=== PATIENT | male | born 1965 | race Caucasian/White ===

== ENCOUNTER 2019-05-10 14:00 | Outpatient (RCR) | payer MEDICAID, SELFPAY ==
--- NOTE | 2019-01-15 12:18 | HP.PTEVAL_ITS ---
Patient's Visit Information HIRAL JOSE is a 53 year old M referred to Physical Therapy by EDILIA REDMOND with a diagnosis of Right knee/hip/back pain. Date of Evaluation: 01/15/19 Physical Therapist: Mary Ann Kirk DPT - Visit Plan Frequency: 2x /Week Duration: 4 Weeks Plan: Focus on LE and core s/s- functional mobility and balance- Ultrasound for pain - Subjective Findings: Patient reports that his hip, knee and back on the right side have been bothering him for months. Just got a new brave AFO on the right to help with the toe out gait pattern. The pain is constant. More pain when he is up walking and when he is mobile. Does do stairs which bother him. He is mostly sedentary. No pain when sitting. Worst: 8/10. they all hurt equally. Dull and achy as well as sharp and shooting. Does not use a cane or walker. Lives with his mother- has stairs at home- has 2 handrails on them. Pain radiates to the ankle. Eases: aspercream, sitting down in reclyner (3 hours), Ibuprofen/Tylenol. Sleep: disturbed- back and side sleeper. PMHx/Meds: in chart. - Objective Posture: FH, RS- can correct with VC's but does not maintain- flaccid right UE. Gait: severe deviations on the right- extreme hyperextension of the right knee with stance phase, ER of the hip increasing last turner of the right LE- no AD. SLS: 3 sec then LOB on right Left: 10 seconds. HR/TR: unable due to fixed AFO on the right. ROM: WFL in all planes with passive ROM. Palpation: tender along medial and lateral joint line of the knee, greater troch of the hip and along paraspinals of supine bilaterally from sacrum to Ct junction. Strength: Left: 5/5 throughout Core: poor, Hip: 2+/5, Knee: 3/5 Ankle: not tested secondary to non hinged AFO - Goals Goal 1:: Patient will be I with HEP and progression Goal Time Frame: 4-6 Weeks Goal 2:: Patient will maintain proper posture to demo increased core s/s Goal Time Frame: 4-6 Weeks Goal 3:: Patient will report decreased pain in knee/hip and lumbar Goal Time Frame: 4-6 Weeks Goal 4:: Patient will report sleeping through the night with no pain Goal Time Frame: 4-6 Weeks - Rehabilitation Potential Physical Therapy Diagnosis: Patient presents with hypomobility- he has decreased strength and muscular enduranc leading to poor gait pattern and increased pain with ADL's. Rehabilitation Potential: Fair - Anticipated Interventions Patient/Client Instruction: Educate patient on: Benefits of Fitness Program Therapeutic Exercise to Include: Strength training, Endurance training, Balance training, Agility training, Body mechanics, Postural training, Flexibilty training, Gait and locomotor training, Passive ROM, Active ROM, Dynamic Lumbar Stabilization For the Purpose of:: To improve muscle performance and motor function Cryotherapy (ice pack, ice massage): Yes Thermo therapy (hot pack): Yes Ultrasound (thermal/non thermal): Yes Thank you for the opportunity to evaluate your patient. For Medicare and Medicare HMO plans, please review the plan of care and approve it. It will need to be FAXED BACK to us at [phone] for Medicare purposes. For Medicare only, by signing this I certify the plan of care. Please let me know if there are questions or concerns regarding this plan of care. Physician Signature: Dat e:
--- NOTE | 2019-02-15 13:34 | HP.PTREVAL ---
EDILIA REDMOND, It has been my pleasure to treat HIRAL JOSE over the last 9 visits for Right knee/hip/back pain. Please see the progress note below for an update on the physical therapy plan of care! Subjective: Patient reports that he is wearing the new brace. Still has a lot of pain in his knee/hip and back- the strength is better but the pain is still the same. Objective/Function: Posture: FH, RS- can correct with VC's but does not maintain- flaccid right UE was wearing Bioness brace. Gait: severe deviations on the right- extreme hyperextension of the right knee with stance phase, ER of the hip increasing turn down worker of the right LE- no AD. SLS: 5 sec then LOB on right Left: 10 seconds. HR/TR: unable due to fixed AFO on the right. ROM: WFL in all planes with passive ROM. Palpation: tender along medial and lateral joint line of the knee, greater troch of the hip and along paraspinals of supine bilaterally from sacrum to Ct junction. Strength: Left: 5/5 throughout Core: poor, Hip: 2+/5, Knee: 3/5 Ankle: not tested secondary to non hinged AFO Plan Plan: Aquatic therapy to promote decreased weight bearing through LE joints Goals Goal 1:: Patient will be I with HEP and progression Goal Time Frame: 4-6 Weeks Goal Progress: Progressing Goal 2:: Patient will maintain proper posture to demo increased core s/s Goal Time Frame: 4-6 Weeks Goal Progress: Progressing Goal 3:: Patient will report decreased pain in knee/hip and lumbar Goal Time Frame: 4-6 Weeks Goal Progress: Not Progressing Goal 4:: Patient will report sleeping through the night with no pain Goal Time Frame: 4-6 Weeks Goal Progress: Not Progressing Anticipated Interventions Patient/Client Instruction: Educate patient on: Benefits of Fitness Program Therapeutic Exercise to Include: Strength training, Endurance training, Balance training, Agility training, Body mechanics, Postural training, Flexibilty training, Gait and locomotor training, Passive ROM, Active ROM, Dynamic Lumbar Stabilization For the Purpose of:: To improve muscle performance and motor function Cryotherapy (ice pack, ice massage): Yes Thermo therapy (hot pack): Yes Ultrasound (thermal/non thermal): Yes Please do not hesitate to contact me at [phone] by phone or if you have questions or concerns regarding this new plan of care! Sincerely, MARIE MendozaT
--- NOTE | 2019-03-18 15:34 | HP.PTREVAL ---
EDILIA REDMOND, It has been my pleasure to treat HIRAL JOSE over the last 15 visits for Right knee/hip/back pain. Please see the progress note below for an update on the physical therapy plan of care! Subjective: Patient reports that things are getting easier- no less pain just functionally easier. Has pain all the time. Objective/Function: Posture: FH, RS- can correct with VC's but does not maintain- flaccid right UE was wearing Bioness brace. Gait: severe deviations on the right- extreme hyperextension of the right knee with stance phase, ER of the hip increasing shank turner of the right LE- no AD. SLS: 5 sec then LOB on right Left: 15 seconds. HR/TR: unable due to fixed AFO on the right. ROM: WFL in all planes with passive ROM. Palpation: tender along medial and lateral joint line of the knee, greater troch of the hip and along paraspinals of supine bilaterally from sacrum to Ct junction. Strength: Left: 5/5 throughout Core: fair, Hip: 3-/5, Knee: 3/5 Ankle: not tested secondary to non hinged AFO Plan Plan: Continue in aquatic setting 2x a week for 4 weeks- progress to HEP Goals Goal 1:: Patient will be I with HEP and progression Goal Time Frame: 4-6 Weeks Goal Progress: Progressing Goal 2:: Patient will maintain proper posture to demo increased core s/s Goal Time Frame: 4-6 Weeks Goal Progress: Progressing Goal 3:: Patient will report decreased pain in knee/hip and lumbar Goal Time Frame: 4-6 Weeks Goal Progress: Progressing Goal 4:: Patient will report sleeping through the night with no pain Goal Time Frame: 4-6 Weeks Goal Progress: Progressing Anticipated Interventions Patient/Client Instruction: Educate patient on: Benefits of Fitness Program Therapeutic Exercise to Include: Strength training, Endurance training, Balance training, Agility training, Body mechanics, Postural training, Flexibilty training, Gait and locomotor training, Passive ROM, Active ROM, Dynamic Lumbar Stabilization For the Purpose of:: To improve muscle performance and motor function Cryotherapy (ice pack, ice massage): Yes Thermo therapy (hot pack): Yes Ultrasound (thermal/non thermal): Yes Please do not hesitate to contact me at [phone] by phone or if you have questions or concerns regarding this new plan of care! Sincerely, MARIE MendozaT
--- NOTE | 2019-05-12 13:00 | HP.PT.NRP ---
HP - Discharge Summary (1) - Patient Information HIRAL JOSE was seen in my office for initial evaluation on 01/15/19. The following Plan of Care was established for this patient: Initial Frequency: 2x /Week Initial Duration: 4 Weeks - Anticipated Interventions Patient/Client Instruction: Educate patient on: Benefits of Fitness Program Therapeutic Exercise to Include: Strength training, Endurance training, Balance training, Agility training, Body mechanics, Postural training, Flexibilty training, Gait and locomotor training, Passive ROM, Active ROM, Dynamic Lumbar Stabilization For the Purpose of:: To improve muscle performance and motor function Cryotherapy (ice pack, ice massage): Yes Thermo therapy (hot pack): Yes Ultrasound (thermal/non thermal): Yes This patient was last seen in our office . Pertinent comments regarding their Physical therapy will appear below: Patient called and cancelled apts- fell and broke his collar bone and seperated his shoulder- appropriate to be d/c at this time. At this point I will be discontinuing this patient from physical therapy. I would be happy to see this patient again in the future if found appropriate by the physician. Thank you! Mary Ann Kirk DPT
== END 2019-05-10 19:00 | disposition home or self-care (01) ==
LOC: PT 14:00
PROVIDERS: Family Provider Family Medicine; PCP Family Medicine
DX: G81.10 Spastic hemiplegia affecting unspecified side (principal)
CPT/HCPCS: 97035; 97110; 97113; 97116; 97162; 97164

== ENCOUNTER 2021-12-16 07:14 | Emergency (ER) | payer MEDICAID, SELFPAY ==
[2021-12-16] VITALS (8 sets, daily range): BP systolic 108–170; BP diastolic 73–116; PULSE 60–86; RESP 12–18; TEMP 35.4–36.4; O2SAT 94–100; BMI 28.8
--- NOTE | 2021-12-16 07:38 | CT_ITS ---
EXAM: CT CHEST, ABDOMEN AND PELVIS WITHOUT INTRAVENOUS CONTRAST : 1965 CLINICAL INDICATION: altered mental TECHNIQUE: Helically acquired images were obtained of the chest, abdomen and pelvis without intravenous contrast. This CT exam was performed using one or more of the following dose reduction techniques: automated exposure control, adjustment of the mA and/or kV according to patient size, and/or use of iterative reconstruction technique. This report was created using [employer] report generation technology. COMPARISON: CT the abdomen and pelvis dated 06/26/2017 FINDINGS: CHEST: LUNGS AND PLEURAL SPACES: Unremarkable. No mass. No consolidation or edema. No pleural effusion or thickening. No pneumothorax. HEART: Unremarkable. Heart size is normal. No pericardial effusion. No significant coronary artery calcifications. MEDIASTINUM: Unremarkable. No mediastinal or hilar adenopathy. Esophagus is unremarkable. No hiatal hernia. THYROID: Unremarkable. No thyroid lesions. ABDOMEN: LIVER: Unremarkable. Homogeneous. GALLBLADDER AND BILE DUCTS: Unremarkable. No calcified gallstones. No gallbladder distention or wall edema. No intra- or extrahepatic biliary ductal dilation. PANCREAS: Unremarkable. No focal cystic mass. SPLEEN: Unremarkable. Normal size without focal cystic or solid mass. ADRENALS: Unremarkable. No nodules. KIDNEYS AND URETERS: Patient status post right nephrectomy. STOMACH AND BOWEL: Unremarkable. No stomach or bowel distention. No focal inflammatory change. PELVIS: APPENDIX: No evidence of acute appendicitis. BLADDER: Unremarkable. REPRODUCTIVE: Unremarkable as visualized. No mass. CHEST, ABDOMEN and PELVIS: INTRAPERITONEAL SPACE: Unremarkable. No ascites or other fluid collection. No free air. BONES/JOINTS: Unremarkable. No suspicious lytic or blastic abnormality. SOFT TISSUES: Unremarkable. No discrete abdominal or pelvic wall hernia. VASCULATURE: Unremarkable. Aorta is non-dilated. LYMPH NODES: Unremarkable. No enlarged lymph nodes. CT/CT Chest, Abd, Pelvis WO Cont IMPRESSION: No acute abnormalities in the chest, abdomen or pelvis. Patient is status post right nephrectomy. Individualized dose optimization techniques were used for this CT. at 0842 Reported and signed by: Alvino Tyson MD Electronically Signed: Alvino Tyson MD at 8:41 EST ,
--- NOTE | 2021-12-16 07:39 | EKG12_ITS ---
Test Reason : FALL Blood Pressure : / mmHG Vent. Rate : 066 BPM Atrial Rate : 066 BPM P-R Int : 178 ms QRS Dur : 100 ms QT Int : 430 ms P-R-T Axes : 070 061 053 degrees QTc Int : 450 ms Normal sinus rhythm Normal ECG Confirmed by ROMERO QUILES, SILKE ([id number]), online content editor SOWMYA DAVIS ([id number]) on 12/19/2021 12:55:21 PM Referred By: BUBBA Confirmed By:SILKE JASSO MD
--- NOTE | 2021-12-16 07:39 | CT_ITS ---
EXAM: CT HEAD WITHOUT INTRAVENOUS CONTRAST : 1965 CLINICAL INDICATION: Trauma TECHNIQUE: Multiple axial images were obtained of the head without intravenous contrast. This CT exam was performed using one or more of the following dose reduction techniques: automated exposure control, adjustment of the mA and/or kV according to patient size, and/or use of iterative reconstruction technique. This report was created using [employer] report generation technology. COMPARISON: 03/07/2016 FINDINGS: BRAIN AND EXTRA-AXIAL SPACES: There is stable hypoattenuation in the left frontal and parietal lobes compatible with remote ischemia. There is mild enlargement of the left lateral ventricle and frontal horns due to an ex vacuo effect which is also stable. No intra- or extra-axial hemorrhage. No intracranial mass or mass effect. Posterior fossa structures are unremarkable. Basal cisterns are patent. BONES/JOINTS: There is beam hardening artifact from metallic structure in the posterior left temporal bone which is stable. No discrete lytic or blastic abnormalities. SINUSES: Unremarkable as visualized. Clear. MASTOID AIR CELLS: Unremarkable. Clear. ORBITS: Visualized globes, extraocular muscles, optic nerves and retrobulbar fat appear unremarkable. CT/Brain/Head without Contrast IMPRESSION: 1. No acute intracranial abnormality. There has been no change from the reference examination. 2. Stable left-sided hypoattenuation from remote ischemia. Individualized dose optimization techniques were used for this CT. at 0814 Reported and signed by: Alvnio Tyson MD Electronically Signed: Alvino Tyson MD at 8:13 EST ,
--- NOTE | 2021-12-16 07:39 | RAD_ITS ---
STUDY: X-RAY CHEST REASON FOR EXAM: Male, 56 years old. Trauma TECHNIQUE: Single AP portable view of the chest. COMPARISON: 04/23/2014 FINDINGS: Interval placement of endotracheal tube with the tip approximately 5 cm above the chau. Interval placement of nasogastric tube with the tip below the diaphragm. The lungs are clear and expanded. There is no demonstrated pleural abnormality. Normal size heart. Normal mediastinum and abraham. Normal visualized pulmonary arteries. Normal visualized aortic arch and descending thoracic aorta. Normal visualized thoracic spine. Normal visualized ribs, clavicles, and shoulders. There is no demonstrated abnormality of the visualized soft tissue structures of the upper abdomen. RAD/Chest 1 View (Portable) IMPRESSION: 1. Interval placement of endotracheal tube with the tip above the cahu. 2. Interval placement of nasogastric tube with the tip below the diaphragm. 3. No active pulmonary disease. Electronically Signed: Brain Castillo MD at 9:51 EST ,
--- NOTE | 2021-12-16 07:40 | CT_ITS ---
EXAM: CT CERVICAL SPINE WITHOUT INTRAVENOUS CONTRAST : 1965 CLINICAL INDICATION: Trauma TECHNIQUE: Helically acquired images were obtained of the cervical spine without intravenous contrast. 2D reformatted images were reviewed. This CT exam was performed using one or more of the following dose reduction techniques: automated exposure control, adjustment of the mA and/or kV according to patient size, and/or use of iterative reconstruction technique. This report was created using [employer] report generation technology. COMPARISON: None. FINDINGS: VERTEBRAE: Unremarkable. No fracture. No traumatic subluxation. No discrete lytic or blastic abnormality. Normal alignment. Normal craniocervical junction and cervicothoracic junction. DISCS/SPINAL CANAL/NEURAL FORAMINA: There is disc space narrowing at C4-5. SOFT TISSUES: Unremarkable. No prevertebral soft tissue swelling. LYMPH NODES: Unremarkable. No cervical adenopathy. LUNG APICES: Unremarkable as visualized. Clear. CT/Spine Cervical without Contras IMPRESSION: 1. No acute osseous abnormalities. 2. Mild degenerative changes with disc space narrowing. Individualized dose optimization techniques were used for this CT. at 0816 Reported and signed by: Alvino Tyson MD Electronically Signed: Alvino Tyson MD at 8:15 EST ,
--- NOTE | 2021-12-16 07:50 | ED.RN ---
THIS RN SPOKE WITH MOM ON PHONE. MOM REPORTS THAT PT HAD A SEIZURE THIS AM ON THE TOILET AND HAD FALLEN AND HIT HIS HEAD. SHE REPORTS THRASHING SEIZURE ACTIVITY THAT LASTED A MINUTE OR TWO. REPORTS WHEN SHE CALLED 911, HE HAD ANOTHER SEIZURE FOR A COUPLE MINUTES PRIOR TO SQUAD ARRIVAL. SHE REPORTS PT HAS RESIDUAL APHASIA AND SPEECH DIFFICULTIES AND RIGHT SIDED WEAKNESS FROM A PREVIOUS STROKE.
--- NOTE | 2021-12-16 07:52 | EDS_ITS ---
HPI History of Present Illness Chief Complaint: Confusion Narrative Narrative: 56-year-old male presenting from home. It is reported that he had a seizure this morning. He also suffered a fall. His mother reports that he had another seizure afterwards. She told the nursing staff that she has not seen and have a seizure in a long time. [facility] Medical History Back problem Bone fracture Head trauma High blood pressure Kidney disease Kidney failure Kidney stones Stroke UTI (urinary tract infection) Home Medications gabapentin 300 mg PO TID 09/08/14 [History Last Taken Unknown] baclofen 10 mg PO 4X/DAY 04/11/16 [History Last Taken 09/16/17 05:00 10 MG] Botox 0 mg IM QMONTH 06/06/17 [History Last Taken Unknown] aspirin 325 mg PO BID 06/06/17 [History Last Taken 07/09/17] lisinopril 10 mg PO DAILY 06/06/17 [History Last Taken 09/16/17 05:00 10 MG] trazodone 25 - 50 mg PO QHS 06/06/17 [History Last Taken Unknown] hydrocodone-acetaminophen 1 - 2 tab PO Q4H PRN PRN #20 tab 09/17/17 [Rx Last Taken Unknown] Allergy/AdvReac Type Severity Reaction Status Date / Time tramadol Allergy SEIZURE Verified 12/16/21 07:15 Family History Father CVA (cerebral vascular accident) Hypertension Melanoma Mother Osteoporosis Surgical History History of kidney removal S/P appendectomy S/P colectomy S/P foot surgery, left S/P hernia repair Status post ear surgery Social History (Updated 09/29/17 @ 15:06 by Maribell SHAFFER PA-C) Smoking Status: Current every day smoker tobacco type: e-cigarettes second hand exposure: No alcohol intake: former substance use type: does not use caffeine: Yes what type of physical activity do you participate in: none seatbelt use: always ROS ROS ED Review of Systems ROS Unobtainable: due to mental status EXAM Physical Exam Const Vital Signs: 12/16/21 07:15 12/16/21 08:14 12/16/21 08:35 Temperature 97.5 F L 95.7 F L Temperature Source Temporal Core Pulse Rate 70 60 62 Respiratory Rate 16 16 12 Respiratory Depth Respiratory Pattern Blood Pressure 144/89 H 112/73 108/80 Blood Pressure Mean 107 86 89 Pulse Ox 98 99 100 Oxygen Delivery Method Room Air Room Air Room Air Oxygen Flow Rate (L/min) Fraction of Inspired Oxygen (FIO2) 12/16/21 08:50 12/16/21 09:05 12/16/21 09:20 Temperature 95.8 F L Temperature Source Core Pulse Rate 81 86 68 Respiratory Rate 14 16 14 Respiratory Depth Shallow Respiratory Pattern Normal Blood Pressure 163/116 H 170/106 H Blood Pressure Mean 131 127 Pulse Ox 100 100 98 Oxygen Delivery Method Ambu-Bag Mechanical Ventilator Mechanical Ventilator Oxygen Flow Rate (L/min) 15 Fraction of Inspired Oxygen (FIO2) 21 12/16/21 09:24 12/16/21 10:13 Temperature Temperature Source Pulse Rate 82 81 Respiratory Rate 14 18 Respiratory Depth Respiratory Pattern Blood Pressure 134/95 H 140/84 H Blood Pressure Mean 108 102 Pulse Ox 94 99 Oxygen Delivery Method Mechanical Ventilator Mechanical Ventilator Oxygen Flow Rate (L/min) Fraction of Inspired Oxygen (FIO2) Positive well nourished Constitutional Narrative: Unresponsive HEENT normocephalic and atraumatic Eyes Eyes Narrative: Pupils 3 mm bilaterally. No change with light. Cardio regular rate, regular rhythm and no murmurs GI non-tender and non-distended Palpation: soft Back/Spine Cervical Spine: Negative for cervical spine tenderness Neuro Neuro Narrative: Unresponsive Psych Psych Narrative: Unresponsive Skin Lesions: no lesions Rashes: no rashes MDM MDM MDM Narrative Medical decision making narrative: I heard the patient talking to the nurse and sounding confused about 2 minutes before walking into the room. At this point he was unresponsive. I found no signs of trauma. His vital signs were stable and he was afebrile. He was sent to CT and had a CT brain, cervical spine, chest abdomen pelvis which were all negative as interpreted by the radiologist. Patient returned and was still unresponsive and at this point his mother had arrived and stated that he had had a couple of seizures this morning however he was joking and laughing when he was driving way with EMS. I did recommend that he be intubated and she was amenable to this. Patient was intubated with the glide scope and an 8.0 ET tube. Good color change was noted. Good bilateral breath sounds. Chest x-ray on my interpretation shows no acute cardiopulmonary process with good placement of the ET tube. The radiologist agree. KUB was also obtained and shows the nasogastric tube in stomach on my interpretation radiologist agree. CBC shows no leukocytosis. Hemoglobin is low at 8.7. I did review this on clinisync and apparently the patient had been hospitalized earlier this week for a GI bleed and had upper and lower endoscopy. He also received a unit of blood. At that point his hemoglobin was 7.7. Creatinine slightly elevated at 1.42. Drug screen is negative. EtOH negative. I spoke with the transfer line for [facility] and then did speak with the neurologist who is on-call regarding method of transport. Both of us had concerned that the patient needed to come to [facility] right away. The only known cause of this could be seizure activity. He is not visibly seizing that I can tell. She also recommended that we start a propofol drip which was done. He was given a bolus prior to this as the patient was slightly moving now. At this point [facility] was called and was able to come to the emergency room within 12 minutes. Report was given. The neurologist from [facility] did want me to get a CTA of the head and neck prior to the patient being transported but because of [facility] arrived so fast, I was unable to obtain this. I did call [facility] back to tell them about this. I also reported this to [facility]. Discussed again with the mother with the plan is and she is amenable to this plan as she is the only one that can make his decisions at this point. She will drive to [facility] separately. Impression: 1. Altered mental status 2. Status epilepticus 3. Closed head injury 4. Occult GI bleed 5. Anemia Lab Data Attestation: I reviewed the patient's lab results. Labs: Laboratory Results - last 24 hr 12/16/21 12/16/21 12/16/21 07:25 07:25 07:25 WBC 9.9 RBC 3.18 L Hgb 8.7 L Hct 27.1 L MCV 85.2 MCH 27.4 MCHC 32.1 RDW Std Deviation 50.3 H RDW Coeff of Geovani 16.8 H Plt Count 522 H MPV 9.3 Immature Gran % (Auto) 0.700 Neut % (Auto) 84.7 H Lymph % (Auto) 7.7 L [place] % (Auto) 6.4 Eos % (Auto) 0.3 Baso % (Auto) 0.2 Absolute Neuts (auto) 8.4 H Absolute Lymphs (auto) 0.76 L Nucleated RBC % 0 PT 13.1 INR 1.1 Sodium 139 Potassium 3.7 Chloride 105 Carbon Dioxide 27.0 Anion Gap 7 BUN 20 H Creatinine 1.42 H Estim Creat Clear Calc 48.64 Est GFR (MDRD) Af Amer 66 Est GFR (MDRD) Non-Af 55 L BUN/Creatinine Ratio 14.1 Glucose 127 H Calcium 8.4 L Total Bilirubin 0.20 Direct Bilirubin 0.07 AST 24 ALT 30 Alkaline Phosphatase 49 Total Protein 6.8 Albumin 3.4 Globulin 3.4 Urine Color Urine Clarity Urine pH Ur Specific [place] Urine Protein Urine Glucose (UA) Urine Ketones Urine Occult Blood Urine Nitrite Urine Bilirubin Urine Urobilinogen Ur Leukocyte Esterase Urine RBC Urine WBC Ur Squamous Epith Cells Urine Bacteria Urine Mucus Urine Opiates Screen Urine Methadone Screen Ur Barbiturates Screen Ur Phencyclidine Scrn Ur Amphetamines Screen U Methamphetamin-MDMA U Benzodiazepines Scrn Urine Cocaine Screen U Cannabinoids Screen Ur Drug Screen Comment Ethyl Alcohol 12/16/21 12/16/21 12/16/21 08:01 08:11 08:11 WBC RBC Hgb Hct MCV MCH MCHC RDW Std Deviation RDW Coeff of Geovani Plt Count MPV Immature Gran % (Auto) Neut % (Auto) Lymph % (Auto) [place] % (Auto) Eos % (Auto) Baso % (Auto) Absolute Neuts (auto) Absolute Lymphs (auto) Nucleated RBC % PT INR Sodium Potassium Chloride Carbon Dioxide Anion Gap BUN Creatinine Estim Creat Clear Calc Est GFR (MDRD) Af Amer Est GFR (MDRD) Non-Af BUN/Creatinine Ratio Glucose Calcium Total Bilirubin Direct Bilirubin AST ALT Alkaline Phosphatase Total Protein Albumin Globulin Urine Color Yellow Urine Clarity Clear Urine pH 6.5 Ur Specific [place] 1.015 Urine Protein 30 H Urine Glucose (UA) Normal Urine Ketones Negative Urine Occult Blood Negative Urine Nitrite Negative Urine Bilirubin Negative Urine Urobilinogen Normal Ur Leukocyte Esterase Negative Urine RBC 0 SEEN Urine WBC 0 SEEN Ur Squamous Epith Cells 0 SEEN Urine Bacteria 0 SEEN Urine Mucus 0 SEEN Urine Opiates Screen NEGATIVE Urine Methadone Screen NEGATIVE Ur Barbiturates Screen NEGATIVE Ur Phencyclidine Scrn NEGATIVE Ur Amphetamines Screen NEGATIVE U Methamphetamin-MDMA NEGATIVE U Benzodiazepines Scrn NEGATIVE Urine Cocaine Screen NEGATIVE U Cannabinoids Screen NEGATIVE Ur Drug Screen Comment Ethyl Alcohol < 3.0 ABG Data ABG results: ABG 12/16/21 09:16 Specimen Type ART Sample Site L Radial pH 7.41 Bicarbonate Actual 24.9 Total CO2 26 Base Excess 0 O2 Saturation 96 O2 % 21 ABG pCO2 39.5 ABG pO2 84 Bay Test Positive Respiration Rate 14 Vent Mode AC Tidal Volume 450 POC PEEP 5 Radiography Diagnostic Testing: Clinical Impression(s) from Imaging Studies Chest/Abdomen/Pelvis CT 12/16/21 07:38 IMPRESSION: No acute abnormalities in the chest, abdomen or pelvis. Patient is status post right nephrectomy. Individualized dose optimization techniques were used for this CT. at 0842 Reported and signed by: Alvino Tyson MD Electronically Signed: Alvino Tyson MD at 8:41 EST , Brain CT 12/16/21 07:39 IMPRESSION: 1. No acute intracranial abnormality. There has been no change from the reference examination. 2. Stable left-sided hypoattenuation from remote ischemia. Individualized dose optimization techniques were used for this CT. at 0814 Reported and signed by: Alvino Tyson MD Electronically Signed: Alvino Tyson MD at 8:13 EST , Chest X-Ray 12/16/21 07:39 IMPRESSION: 1. Interval placement of endotracheal tube with the tip above the chau. 2. Interval placement of nasogastric tube with the tip below the diaphragm. 3. No active pulmonary disease. Electronically Signed: Brain Castillo MD at 9:51 EST , Cervical Spine CT 12/16/21 07:40 IMPRESSION: 1. No acute osseous abnormalities. 2. Mild degenerative changes with disc space narrowing. Individualized dose optimization techniques were used for this CT. at 0816 Reported and signed by: Alvino Tyson MD Electronically Signed: Alvino Tyson MD at 8:15 EST , KUB X-Ray 12/16/21 08:56 IMPRESSION: 1. Nasogastric tube likely with the tip in the cardia of the stomach and side-port in the distal esophagus. 2. No bowel obstruction. Electronically Signed: Brain Castillo MD at 9:52 EST , Procedures Intubations Intubation Method: orotracheal Intubation Verification: Positive color change Intubation Complications: no complications Critical Care Time Critical care time (excluding procedures): 30-74 minutes (60), Discussing w/Patient &/or Family/Ball Holder, Discussing w/Consultants, Arranging Admission or Transfer and Performing Direct Patient Care at Bedside Discharge Plan Triage Chief Complaint: Confusion ED Provider: Jeffery Franco Dx/Rx/DC Orders Prescriptions: No Action gabapentin 300 MG capsule 300 mg PO TID RF: 0 baclofen 10 MG tablet 10 mg PO 4X/DAY RF: 0 trazodone 50 MG tablet 25 - 50 mg PO QHS RF: 0 aspirin 325 MG tablet 325 mg PO BID RF: 0 lisinopril 10 MG tablet 10 mg PO DAILY RF: 0 Botox 0 mg IM QMONTH RF: 0 hydrocodone-acetaminophen 1 TABLET tablet 1 - 2 tab PO Q4H PRN PRN (Reason: Pain) Qty: 20 RF: 0 Primary Care Provider: Cheng Downey Referrals: Cheng Downey MD [Primary Care Provider] - Disposition Disposition: Acute Care Hospital Discharge Location: [facility] Discharge Date/Time: 12/16/21 10:17
[2021-12-16 07:53] LABS: Absolute Lymphocyte Count 0.76 X10^3/uL (0.83-4.51); Absolute Neutrophil Count 8.4 X10^3/uL (2.0-7.7); Basophil# 0.02 X10^3/uL; Basophil% 0.2 % (0-1); Eosinophil# 0.03 X10^3/uL; Eosinophils% 0.3 % (0-5); Hematocrit 27.1 % (40-54); Hemoglobin 8.7 g/dL (13.0-16.5); Lymphocyte # 0.76 X10^3/ul (0.83-4.51); Lymphocyte % 7.7 % (19-41); Mean Corp Hgb Conc 32.1 g/dL (32-36); Mean Corpuscular Hgb 27.4 pg (27.0-32.0); Mean Corpuscular Volume 85.2 fL (80-94); Mean Platelet Vol. 9.3 fl (6.2-12.0); Monocyte# 0.63 X10^3/uL; Monocyte% 6.4 % (0-10); NRBC Flagged by Analyzer 0 % (0-5); Neutrophil # 8.36 X10^3/uL (2.7-7.7); Neutrophil % 84.7 % (47-70); Platelet Count 522 K/mm3 (150-450); RBC Distribution Width CV 16.8 % (11.6-14.6); RBC Distribution Width SD 50.3 fl (35.1-43.9); Red Blood Count 3.18 M/mm3 (4.6-6.2); White Blood Count 9.9 K/mm3 (4.4-11.0)
[2021-12-16 08:05] LABS: AST(SGOT) 24 U/L (15-37); Alanine Aminotransfer ALT/SGPT 30 U/L (16-61); Albumin, Serum 3.4 g/dL (3.2-5.0); Alkaline Phosphatase 49 U/L (45-117); Anion Gap 7 (5-15); BUN 20 mg/dL (7-18); BUN/Creat Ratio 14.1 RATIO (10-20); Bilirubin, Direct 0.07 mg/dL (0.00-0.30); Calcium,Total 8.4 mg/dL (8.5-10.1); Chloride 105 mmol/L (98-107); Creatinine, Serum 1.42 mg/dL (0.70-1.30); EST Glomerular Filtration Rate 55 mL/min (>60); Est Glom Filt Rate - Afr Amer 66 mL/min (>60); Estimated Creatinine Clearance 48.64 ml/min; Globulin 3.4 g/dL (2.2-4.2); Glucose 127 mg/dL (74-106); Potassium 3.7 mmol/L (3.5-5.1); Protein, Total 6.8 g/dL (6.4-8.2); Sodium Level 139 mmol/L (136-145)
[2021-12-16] MEDS: levETIRAcetam IV 1,000 MG/100 ML BAG 400 MG IV (08:07)
[2021-12-16] MEDS: 0.9% Normal Saline 1,000 ML 999 ML IV ×2 (08:11→08:50)
[2021-12-16 08:24] LABS: Bacteria 0 SEEN /hpf (None Seen); Mucous, Urine 0 SEEN /hpf (<or=2+); Red Blood Cells-Urine 0 SEEN /hpf (0-5); Squamous Epithelial Cells - UA 0 SEEN /hpf (0-5); White Blood Cells 0 SEEN /hpf (0-5)
[2021-12-16 08:28] LABS: Color, Urine Yellow (Yellow); Glucose, Dipstick Normal (Normal); Ketone-Dipstick Negative (Negative); Leukocyte Esterase-Dipstick Negative /ul (Negative); Nitrite-Dipstick Negative (Negative); Occult Blood-Urine Negative /ul (Negative); Protein-Dipstick 30 mg/dl (Negative); Specific Gravity, Urine 1.015 (1.002-1.030); Urine Bilirubin Dipstick Negative (Negative); Urine Clarity Clear (Clear); Urine Urobilinogen Normal (Normal); Urine pH 6.5 (5.0 - 8.0)
[2021-12-16 08:38] LABS: International Normalized Ratio 1.1; Prothrombin Time (Protime)PT. 13.1 SECONDS (11.7-14.9)
[2021-12-16 08:43] LABS: Amphetamine Urine VISTA NEGATIVE (<1000 ng/mL); Barbiturate Urine VISTA NEGATIVE (< 200 ng/mL); Benzodiazepine Urine VISTA NEGATIVE (< 200 ng/mL); Cocaine Urine VISTA NEGATIVE (< 300 ng/mL); Ecstacy Urine VISTA NEGATIVE (< 500 ng/mL); Methadone Urine VISTA NEGATIVE (< 300 ng/mL); PCP Urine VISTA NEGATIVE (< 25 ng/mL); THC Urine VISTA NEGATIVE (< 50 ng/mL); Vista UDS pH Range 6
--- NOTE | 2021-12-16 08:46 | ED.RN ---
DR. MAC CALLS FOR RSI. 20 MG ETOMIDATE IVP PER Rebecca LECHUGA RN AT 1847, AND 40 MG ROCURONIUM IVP PER Rebecca LECHUGA RN AT 0847. PT INTUBATED PER DR. MAC. 8 CM TUBE 24 AT THE LIP.
[2021-12-16] MEDS: Rocuronium Bromide 50 MG/5 ML Vial 40 MG IV (08:47)
[2021-12-16] MEDS: Etomidate 20 MG/10 ML Vial IV (08:47)
[2021-12-16 08:48] LABS: Alcohol, Blood (Medical)-Serum < 3.0 mg/dL
--- NOTE | 2021-12-16 08:56 | RAD_ITS ---
STUDY: X-RAY - ABDOMEN/PELVIS REASON FOR EXAM: Male, 56 years old. NG tube placement TECHNIQUE: AP supine and decubitus views of the abdomen and pelvis. COMPARISON: None. FINDINGS: Nasogastric tube with the tip in the left upper quadrant likely in the cardia the stomach with the side-port in the distal esophagus. There is an unremarkable bowel gas pattern. The visualized liver, spleen and kidneys are grossly normal in size and morphology. Normal soft tissue structures. Normal visualized osseous structures. RAD/Abdomen Single View (Portable) IMPRESSION: 1. Nasogastric tube likely with the tip in the cardia of the stomach and side-port in the distal esophagus. 2. No bowel obstruction. Electronically Signed: Brain Castillo MD at 9:52 EST ,
--- NOTE | 2021-12-16 09:06 | ED.RN ---
PRIOR TO PT BEING INTUBATED PT WAS MINIMALLY RESPONSIVE BUT RESTLESSLY MOVING ARMS AND LEGS. SOFT RESTRAINTS APPLIED TO MAINTAIN TUBE PLACEMENT PER DR. MAC VERBAL ORDER.
[2021-12-16] MEDS: Propofol 10MG/Ml 1,000 MG/100 ML Bottle 4.6 MG CONT INF (09:15)
[2021-12-16] MEDS: Propofol 200 MG/20 ML Vial 60 MG IV BOLUS (09:20)
[2021-12-16 09:26] LABS: Allen Test Positive; Base Excess 0 mmol/L (-2 to +2); Bicarbonate 24.9 mmol/L (22-26); Blood Gas Specimen Type ART; FI02 21; Mode AC; PEEP 5; PO2 84 mmHG (75-100); RR 14; SITE L Radial; SO2 96 % (95-99); Total Carbon Dioxide 26 mmol/L; Vt 450; pCO2 39.5 mmHg (35-45); pH 7.41 (7.35-7.45)
[2021-12-16] MEDS: LORazepam 2 MG/ML Syringe 4 MG IV (09:35)
== END 2021-12-16 10:17 | disposition short-term general hospital (02) ==
LOC: ED 07:58
PROVIDERS: Emergency Provider Student in an Organized Health Care Education/Training Program; PCP Family Medicine; Visit Provider Student in an Organized Health Care Education/Training Program
DX: G40.901 Epilepsy, unspecified, not intractable, with status epilepticus (principal); S09.90XA Unspecified injury of head, initial encounter; W19.XXXA Unspecified fall, initial encounter; I10 Essential (primary) hypertension; D64.9 Anemia, unspecified; K92.2 Gastrointestinal hemorrhage, unspecified; F17.290 Nicotine dependence, other tobacco product, uncomplicated; Z79.82 Long term (current) use of aspirin; Z79.899 Other long term (current) drug therapy; Z86.73 Personal history of transient ischemic attack (TIA), and cerebral infarction without residual deficits
CPT/HCPCS: G0463; 31500; 36600; 51702; 70450; 71045; 71250; 72125; 74018; 74176; 80048; 80076; 80307; 81001; 82077; 82274; 82803; 85025; 85610; 93005; 94002; 96361; 96374; 96375; 99251; 99285; J7030; A4216

== ENCOUNTER 2022-01-21 13:42 | Observation (INO) | payer MEDICAID, SELFPAY ==
[2022-01-21] VITALS (9 sets, daily range): BP systolic 101–117; BP diastolic 60–74; PULSE 65–83; RESP 12–19; TEMP 36.3–36.7; O2SAT 97–100; BMI 39.9; BMI 20.6
--- NOTE | 2022-01-21 13:50 | ED.RN ---
UNKNOWN HOW LONG PT. HAD SEIZURE OR LKWT.
--- NOTE | 2022-01-21 13:53 | RAD_ITS ---
STUDY: X-RAY CHEST REASON FOR EXAM: Male, 56 years old. Aspiration TECHNIQUE: Single AP portable view of the chest. COMPARISON: Comparison is made with prior study dated 12/16/2021. FINDINGS: EKG electrodes are seen. The lungs are clear and expanded. There is no demonstrated pleural abnormality. Normal size heart. Normal mediastinum and abraham. Normal visualized pulmonary arteries. Normal visualized aortic arch and descending thoracic aorta. There are diffuse degenerative changes of the visualized thoracic spine. Normal visualized ribs, clavicles, and shoulders. There is no demonstrated abnormality of the visualized soft tissue structures of the upper abdomen. RAD/Chest 1 View (Portable) IMPRESSION: No acute abnormality is seen. Electronically Signed: Triston Xiao MD at 14:57 EDT ,
--- NOTE | 2022-01-21 13:54 | EKG12_ITS ---
Test Reason : SEIZURE/UNRESPONSIVE Blood Pressure : / mmHG Vent. Rate : 070 BPM Atrial Rate : 070 BPM P-R Int : 168 ms QRS Dur : 090 ms QT Int : 412 ms P-R-T Axes : 063 066 065 degrees QTc Int : 444 ms Sinus rhythm with Premature supraventricular complexes Otherwise normal ECG Confirmed by MAGALYS QUILES, MAYKEL ([id number]), editor greeting card SOWMYA DAVIS ([id number]) on 01/22/2022 10:26:53 AM Referred By: GRETCHEN Confirmed By:MAYKEL DOWELL MD
[2022-01-21] MEDS: LORazepam 2 MG/ML Syringe IV (14:02)
--- NOTE | 2022-01-21 14:02 | CT_ITS ---
STUDY: CT BRAIN WITHOUT CONTRAST REASON FOR EXAM: Male, 56 years old. Multiple seizures RADIATION DOSAGE (If Supplied By Facility): CTDIvol = ( 47.06 ) mGy, DLP = ( 890.33 ) mGycm TECHNIQUE: Transaxial CT imaging of the brain was performed without administration of intravenous contrast material. Individualized dose optimization techniques were used for this CT. COMPARISON: No relevant priors. FINDINGS: Normal soft tissue structures. Normal calvarium. Stable focal area of encephalomalacia in the left frontal, parietal and occipital lobes with ipsilateral dilatation of the left lateral ventricle. Normal white matter tracts of the cerebral hemispheres. Normal basal ganglia and thalami. Normal brainstem. Normal cerebellum. There is no intracranial hemorrhage. There are no findings of an acute ischemic infarction. Atherosclerotic calcification of the cavernous portions of the internal carotid arteries bilaterally. Mild mucosal thickening along the posterior aspect of the left maxillary sinus. Partial opacification of the ethmoid sinuses bilaterally. CT/Brain/Head without Contrast IMPRESSION: Stable focal area of encephalomalacia in the left frontal, parietal and occipital lobes with ipsilateral dilatation of the left lateral ventricle. Mucosal thickening of the left maxillary sinus and partial opacification of the ethmoid sinuses. Electronically Signed: Triston Xiao MD at 14:21 EDT ,
--- NOTE | 2022-01-21 14:07 | EDS_ITS ---
HPI History of Present Illness Chief Complaint: Seizure Informant: EMS Limited: other (Altered mental status, post ictal) Onset/Context/Timing Onset: - (Presumed today. 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 His mother apparently found him unresponsive foaming at the mouth per paramedics. No other history is available at this time. Spoke to patient's mom at 1458. She states she was in bed. He apparently slept late. She checked on him several times this morning. She then heard rattling and thought the parts washer was off balance. When she went home to look her son was on the floor outstretched with his legs crossed breathing deeply. She noted foaming around his mouth . She states he missed a dose of Keppra on Friday. He may have missed other doses. She is not certain whether he takes them. There is a history of noncompliance. She has been trying to give him the medicine to make sure he is compliant. Prior similar symptoms: Yes (Per review of prior records) Recent Illness/Hospitalization: Yes [facility] Medical History (Updated 01/21/22 @ 15:[address] Nilton Sumner MD) Back problem Bone fracture Head trauma High blood pressure Kidney disease Kidney failure Kidney stones Stroke UTI (urinary tract infection) Medical History unable to obtain unable to obtain (Patient has much more significant problems than listed.) Home Medications gabapentin 300 mg PO TID 09/08/14 [History Last Taken Unknown] baclofen 10 mg PO 4X/DAY 04/11/16 [History Last Taken 09/16/17 05:00 10 MG] Botox 0 mg IM QMONTH 06/06/17 [History Last Taken Unknown] aspirin 325 mg PO BID 06/06/17 [History Last Taken 07/09/17] lisinopril 10 mg PO DAILY 06/06/17 [History Last Taken 09/16/17 05:00 10 MG] trazodone 25 - 50 mg PO QHS 06/06/17 [History Last Taken Unknown] hydrocodone-acetaminophen 1 - 2 tab PO Q4H PRN PRN #20 tab 09/17/17 [Rx Last Taken Unknown] levetiracetam 1,000 mg PO BID 01/21/22 [History Last Taken Unknown] Allergy/AdvReac Type Severity Reaction Status Date / Time tramadol Allergy SEIZURE Verified 12/16/21 07:15 Family History Father CVA (cerebral vascular accident) Hypertension Melanoma Mother Osteoporosis Surgical History History of kidney removal S/P appendectomy S/P colectomy S/P foot surgery, left S/P hernia repair Status post ear surgery Social History (Updated 01/21/22 @ 14:[address] Nilton Sumner MD) household members: other details: Per paramedics lives with his mother Smoking Status: Current every day smoker tobacco type: e-cigarettes second hand exposure: No alcohol intake: former substance use type: does not use caffeine: Yes what type of physical activity do you participate in: none seatbelt use: always ROS ROS ED Review of Systems ROS Unobtainable: due to mental status EXAM Physical Exam Const Vital Signs: 01/21/22 13:43 01/21/22 14:02 01/21/22 15:05 Temperature 97.5 F L Temperature Source Temporal Pulse Rate 83 68 Respiratory Rate 16 12 Blood Pressure 117/73 101/70 Blood Pressure Mean 87 80 Pulse Ox 97 98 Oxygen Delivery Method Nasal Cannula Room Air Positive well nourished and well developed; Negative for obese General Appearance ED: well developed; Negative for cyanotic, diaphoretic or NAD Nutritional Appearance: Negative for obese HEENT Reports TM's clear and moist mucous membranes Negative for trauma or tenderness Tympanic Membrane ED: Yes TM's clear Eyes Negative for PERRL or EOMs intact bilaterally Eyes Narrative: Patient has disconjugate gaze. Pupils are dilated. General Eye ED: Negative for scleral icterus Neck no lymphadenopathy and no JVD Chest Wall inspection of chest normal Resp No normal respiratory effort and No clear to auscultation bilaterally Auscultation: rales Cardio regular rate, regular rhythm and no murmurs GI normal to inspection, nondistended, normoactive bowel sounds Rectal Exam: other Other Details: Patient has a reducible umbilical hernia. There is a significant midline incision that is well-healed. Extremity General Extremety ED: Negative for edema or tenderness General Extremity: Negative for edema Neuro No oriented x3 and No CN's II-XII intact bilaterally Sensorium / Orientation: Negative for alert Motor Exam: Negative for strength 5/5 throughout Psych Negative for mental status grossly normal Skin No no rashes or lesions noted General Skin Exam: other Patient is diaphoretic. He is flushed. MDM MDM MDM Narrative Medical decision making narrative: Patient presents after seizure. Will obtain Keppra level. Was given 2 mg of Ativan since he was still seizing upon arrival. Will review his prior records. Appropriate blood work was ordered to assess renal function, white count, electrolytes. Since there is a history of noncompliance and mother is aware of at least 1 dose if not more doses were missed will administer a 500 mg bolus of Keppra. Hospitalist will be paged for admission. He apparently is scheduled to have an iron transfusion tomorrow and is scheduled for a total of 5. Dr. Fu is the upholstery repairer that he sees and ordered the iron transfusions. Lab Data Attestation: I reviewed the patient's lab results. Labs: Laboratory Results - last 24 hr 01/21/22 01/21/22 01/21/22 13:50 13:50 14:15 WBC 7.3 RBC 3.89 L Hgb 10.7 L Hct 34.3 L MCV 88.2 MCH 27.5 MCHC 31.2 L RDW Std Deviation 58.8 H RDW Coeff of Geovani 18.3 H Plt Count 312 MPV 9.3 Immature Gran % (Auto) 0.700 Neut % (Auto) 75.1 H Lymph % (Auto) 14.8 L [place] % (Auto) 6.0 Eos % (Auto) 2.7 Baso % (Auto) 0.7 Absolute Neuts (auto) 5.5 Absolute Lymphs (auto) 1.08 Nucleated RBC % 0 Sodium 143 Potassium 3.9 Chloride 113 H Carbon Dioxide 20.0 L Anion Gap 10 BUN 20 H Creatinine 1.12 Estim Creat Clear Calc 56.88 Est GFR (MDRD) Af Amer 87 Est GFR (MDRD) Non-Af 72 BUN/Creatinine Ratio 17.9 Glucose 135 H Lactic Acid 2.3 H* Calcium 8.8 Total Bilirubin 0.20 AST 28 ALT 39 Alkaline Phosphatase 52 Total Protein 7.0 Albumin 3.7 Globulin 3.3 Albumin/Globulin Ratio 1.1 ABG was performed reveals a mild metabolic acidosis with a pH of 7.34, PCO2 37.9, PO2 85, bicarb 20.6 with a base excess of -5.1 and O2 saturation of 95.9% on room air. ABG Data ABG results: ABG 01/21/22 14:59 Specimen Type ART Sample Site L Brach pH 7.34 L Bicarbonate Actual 20.6 L Total CO2 22 Base Excess -5 L O2 Saturation 96 O2 % 21 ABG pCO2 37.9 ABG pO2 85 Bay Test N/A O2 Delivery Device Room Air Radiography Chest X-Ray - ED: 1 View and Read by ED Physician (Slightly rotated. Cardiac silhouette size unremarkable. Perihilar/mediastinum unremarkable. Osseous trucks unremarkable. Single view portable chest x-ray was interpreted by me independently at 1450.) Diagnostic Testing: Clinical Impression(s) from Imaging Studies Chest X-Ray 01/21/22 13:53 IMPRESSION: No acute abnormality is seen. Electronically Signed: Triston Xiao MD at 14:57 EDT , Brain CT 01/21/22 14:02 IMPRESSION: Stable focal area of encephalomalacia in the left frontal, parietal and occipital lobes with ipsilateral dilatation of the left lateral ventricle. Mucosal thickening of the left maxillary sinus and partial opacification of the ethmoid sinuses. Electronically Signed: Triston Xiao MD at 14:21 EDT , EKG Initial EKG: Attestation: I personally reviewed and interpreted this EKG as follows: Interpretation: Sinus Rhythm (Ventricular is 70 with premature) Discharge Plan Triage Chief Complaint: Seizure ED Provider: Nilton Sumner Dx/Rx/DC Orders Clinical Impression: Generalized tonic-clonic seizure, SRIRAM (iron deficiency anemia), Acidosis, l actic Prescriptions: No Action gabapentin 300 MG capsule 300 mg PO TID RF: 0 baclofen 10 MG tablet 10 mg PO 4X/DAY RF: 0 trazodone 50 MG tablet 25 - 50 mg PO QHS RF: 0 aspirin 325 MG tablet 325 mg PO BID RF: 0 lisinopril 10 MG tablet 10 mg PO DAILY RF: 0 Botox 0 mg IM QMONTH RF: 0 hydrocodone-acetaminophen 1 TABLET tablet 1 - 2 tab PO Q4H PRN PRN (Reason: Pain) Qty: 20 RF: 0 levetiracetam 1,000 mg Tablet 1,000 mg PO BID RF: 0 Primary Care Provider: Cheng Downey Referrals: Cheng Downey MD [Primary Care Provider] -
[2022-01-21 14:40] LABS: ALB/GLOB Ratio 1.1 RATIO (0.9-2.4); AST(SGOT) 28 U/L (15-37); Alanine Aminotransfer ALT/SGPT 39 U/L (16-61); Albumin, Serum 3.7 g/dL (3.2-5.0); Alkaline Phosphatase 52 U/L (45-117); Anion Gap 10 (5-15); BUN 20 mg/dL (7-18); BUN/Creat Ratio 17.9 RATIO (10-20); Calcium,Total 8.8 mg/dL (8.5-10.1); Chloride 113 mmol/L (98-107); Creatinine, Serum 1.12 mg/dL (0.70-1.30); EST Glomerular Filtration Rate 72 mL/min (>60); Est Glom Filt Rate - Afr Amer 87 mL/min (>60); Estimated Creatinine Clearance 56.88 ml/min; Globulin 3.3 g/dL (2.2-4.2); Glucose 135 mg/dL (74-106); Potassium 3.9 mmol/L (3.5-5.1); Sodium Level 143 mmol/L (136-145)
[2022-01-21 14:48] LABS: Absolute Lymphocyte Count 1.08 X10^3/uL (0.83-4.51); Absolute Neutrophil Count 5.5 X10^3/uL (2.0-7.7); Basophil# 0.05 X10^3/uL; Basophil% 0.7 % (0-1); Eosinophils% 2.7 % (0-5); Hematocrit 34.3 % (40-54); Hemoglobin 10.7 g/dL (13.0-16.5); Lymphocyte # 1.08 X10^3/ul (0.83-4.51); Lymphocyte % 14.8 % (19-41); Mean Corp Hgb Conc 31.2 g/dL (32-36); Mean Corpuscular Hgb 27.5 pg (27.0-32.0); Mean Corpuscular Volume 88.2 fL (80-94); Mean Platelet Vol. 9.3 fl (6.2-12.0); Monocyte# 0.44 X10^3/uL; NRBC Flagged by Analyzer 0 % (0-5); Neutrophil % 75.1 % (47-70); Platelet Count 312 K/mm3 (150-450); RBC Distribution Width CV 18.3 % (11.6-14.6); RBC Distribution Width SD 58.8 fl (35.1-43.9); Red Blood Count 3.89 M/mm3 (4.6-6.2); White Blood Count 7.3 K/mm3 (4.4-11.0)
[2022-01-21 15:00] LABS: Lactic Acid 2.3 mmol/L (0.4-1.9)
[2022-01-21 15:06] LABS: Base Excess -5 mmol/L (-2 to +2); Bicarbonate 20.6 mmol/L (22-26); Blood Gas Specimen Type ART; FI02 21; O2 Delivery Device Room Air; PO2 85 mmHG (75-100); SITE L Brach; SO2 96 % (95-99); Total Carbon Dioxide 22 mmol/L; pCO2 37.9 mmHg (35-45); pH 7.34 (7.35-7.45)
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
[2022-01-21 18:19] LABS: Reflex Lactate? Y
[2022-01-21] MEDS: Baclofen 10 MG Tablet PO ×2 (18:47→22:20)
[2022-01-21] MEDS: levETIRAcetam IV 1,000 MG/100 ML BAG 400 MG IV (22:20)
[2022-01-21] MEDS: Gabapentin 300 MG Capsule PO (22:20)
[2022-01-21] MEDS: 0.9% Saline Lock 10 ML Syringe IV (22:38)
[2022-01-22] VITALS (8 sets, daily range): BP systolic 99–113; BP diastolic 56–72; PULSE 68–81; RESP 16–18; TEMP 36.9–37.3; O2SAT 94–97
[2022-01-22 05:49] LABS: Absolute Lymphocyte Count 1.85 X10^3/uL (0.83-4.51); Eosinophil# 0.41 X10^3/uL; Hematocrit 34.2 % (40-54); Hemoglobin 10.7 g/dL (13.0-16.5); Lymphocyte # 1.85 X10^3/ul (0.83-4.51); Lymphocyte % 18.1 % (19-41); Mean Corp Hgb Conc 31.3 g/dL (32-36); Mean Corpuscular Hgb 27.1 pg (27.0-32.0); Mean Corpuscular Volume 86.6 fL (80-94); Mean Platelet Vol. 10.5 fl (6.2-12.0); Monocyte# 0.83 X10^3/uL; Monocyte% 8.1 % (0-10); NRBC Flagged by Analyzer 0 % (0-5); Neutrophil % 68.4 % (47-70); POSITIVE COUNT YES; Platelet Count 234 K/mm3 (150-450); RBC Distribution Width CV 18.6 % (11.6-14.6); Red Blood Count 3.95 M/mm3 (4.6-6.2); White Blood Count 10.2 K/mm3 (4.4-11.0)
[2022-01-22 05:55] LABS: Differential Indicated SCAN CRITERIA MET
[2022-01-22 06:07] LABS: Anion Gap 5 (5-15); BUN 18 mg/dL (7-18); BUN/Creat Ratio 21.9 RATIO (10-20); Calcium,Total 9.1 mg/dL (8.5-10.1); Chloride 113 mmol/L (98-107); Creatinine, Serum 0.82 mg/dL (0.70-1.30); EST Glomerular Filtration Rate 103 mL/min (>60); Est Glom Filt Rate - Afr Amer 124 mL/min (>60); Estimated Creatinine Clearance 100.87 ml/min; Glucose 99 mg/dL (74-106); Potassium 3.9 mmol/L (3.5-5.1); Sodium Level 140 mmol/L (136-145)
[2022-01-22] MEDS: Gabapentin 300 MG Capsule PO ×3 (06:40→21:18)
[2022-01-22 07:01] LABS: Differential Comment SCANNED
[2022-01-22 07:02] LABS: Platelet Estimate ADEQUATE (ADEQ)
[2022-01-22] MEDS: predniSONE 10 MG Tablet PO (08:17)
--- NOTE | 2022-01-22 09:47 | TELEMED_ITS ---
[facility] Tele[facility] has confirmed receipt of a request for visit. This document confirms receipt of the order initiating the consult. To find the results of the consultation, please view the patient's reports for the scanned Telemed Consult.
[2022-01-22] MEDS: levETIRAcetam IV 1,000 MG/100 ML BAG 400 MG IV (09:49)
[2022-01-22] MEDS: Baclofen 10 MG Tablet PO ×4 (09:50→21:18)
--- NOTE | 2022-01-22 13:38 | CASEMGMT ---
Therapy spoke with CARLENE and said patient would benefit from [facility] 4th floor rehab unit and patient was agreeable. CARLENE called Ariadna in rehab and she will review patient. Ariadna called CARLENE back little while later and patient was approved for rehab. CARLENE will notify patient. Plan: d/c to [facility] 4th floor rehab unit tomorrow. Jayda PUENTES
--- NOTE | 2022-01-22 13:42 | PN.HOSP_ITS ---
Documented by User: Norma Marshall WORKING SECOND HAND, WORKING SECOND HAND-C 01/22/22 14:01 Subjective Subjective Patient seen and examined. More alert today, alert and oriented. No further noted seizure activity. Objective Data Objective Data Vital Signs: Vital Signs Temp Pulse Resp BP Pulse Ox 98.4 F 78 16 99/65 97 01/22/22 09:45 01/22/22 09:45 01/22/22 09:45 01/22/22 09:45 01/22/22 09:45 Oxygen Delivery Method Room Air Weight: 156 lb 4.924 oz Body Mass Index (BMI) 20.6 Intake & Output: Intake and Output for Last 24 Hours 01/20/22 01/21/22 01/22/22 23:59 23:59 23:59 Intake Total 445 / 845 1780 / 1780 Output Total 2675 / 2675 Balance 445 / 45 -895 / -895 Lab / Micro Data Result Diagrams: 01/22/22 04:39 01/22/22 04:39 Labs: Laboratory Results - last 24 hr 01/21/22 13:50: WBC 7.3, RBC 3.89 L, Hgb 10.7 L, Hct 34.3 L, MCV 88.2, MCH 27.5, MCHC 31.2 L, RDW Std Deviation 58.8 H, RDW Coeff of Geovani 18.3 H, Plt Count 312, MPV 9.3, Immature Gran % (Auto) 0.700, Neut % (Auto) 75.1 H, Lymph % (Auto) 14.8 L, [place] % (Auto) 6.0, Eos % (Auto) 2.7, Baso % (Auto) 0.7, Absolute Neuts (auto) 5.5, Absolute Lymphs (auto) 1.08, Nucleated RBC % 0 01/21/22 13:50: Sodium 143, Potassium 3.9, Chloride 113 H, Carbon Dioxide 20.0 L , Anion Gap 10, BUN 20 H, Creatinine 1.12, Estim Creat Clear Calc 56.88, Est GFR (MDRD) Af Amer 87, Est GFR (MDRD) Non-Af 72, BUN/Creatinine Ratio 17.9, Glucose 135 H, Calcium 8.8, Total Bilirubin 0.20, AST 28, ALT 39, Alkaline Phosphatase 52, Total Protein 7.0, Albumin 3.7, Globulin 3.3, Albumin/Globulin Ratio 1.1 01/21/22 14:15: Lactic Acid 2.3 H* 01/21/22 18:45: Lactic Acid 2.0 01/22/22 04:39: WBC 10.2, RBC 3.95 L, Hgb 10.7 L, Hct 34.2 L, MCV 86.6, MCH 27 .1, MCHC 31.3 L, RDW Std Deviation 58.0 H, RDW Coeff of Geovani 18.6 H, Plt Count 234, MPV 10.5, Immature Gran % (Auto) 0.400, Neut % (Auto) 68.4, Lymph % (Auto) 18.1 L, [place] % (Auto) 8.1, Eos % (Auto) 4.0, Baso % (Auto) 1.0, Absolute Neuts (auto) 7.0, Absolute Lymphs (auto) 1.85, Nucleated RBC % 0, Differential Comment SCANNED, Platelet Estimate ADEQUATE 01/22/22 04:39: Sodium 140, Potassium 3.9, Chloride 113 H, Carbon Dioxide 22.0, Anion Gap 5, BUN 18, Creatinine 0.82, Estim Creat Clear Calc 100.87, Est GFR (MDRD) Af Amer 124, Est GFR (MDRD) Non-Af 103, BUN/Creatinine Ratio 21.9 H, Glucose 99, Calcium 9.1 Micro: Microbiology 01/21/22 14:27 Nasal Secretion SARS-CoV-2 Antigen (Rapid) - Final ABG Data ABG results: ABG 01/21/22 14:59 Specimen Type ART Sample Site L Brach pH 7.34 L Bicarbonate Actual 20.6 L Total CO2 22 Base Excess -5 L O2 Saturation 96 O2 % 21 ABG pCO2 37.9 ABG pO2 85 Bay Test N/A O2 Delivery Device Room Air Radiography Diagnostic Testing: Radiology Impression Chest X-Ray 01/21/22 13:53 IMPRESSION: No acute abnormality is seen. Electronically Signed: Triston Xiao MD at 14:57 EDT , Brain CT 01/21/22 14:02 IMPRESSION: Stable focal area of encephalomalacia in the left frontal, parietal and occipital lobes with ipsilateral dilatation of the left lateral ventricle. Mucosal thickening of the left maxillary sinus and partial opacification of the ethmoid sinuses. Electronically Signed: Triston Xiao MD at 14:21 EDT , Physical Exam Const alert, oriented x3 and no apparent distress Orientation / Consciousness: awake, oriented to person, oriented to place and oriented to time HEENT normocephalic and moist oral mucous membranes Eyes PERRL, EOMs intact bilaterally and conjunctivae normal Neck no lymphadenopathy Resp normal respiratory effort and clear to auscultation bilaterally Cardio regular rate, regular rhythm and no murmurs Peripheral Pulses: pulses 2+ throughout GI normal to inspection, nondistended, normoactive bowel sounds, non-tender and non-distended Extremity normal to inspection Skin no rashes or lesions noted Lesions: no lesions Rashes: no rashes Trauma: no lacerations or abrasions Neuro CN's II-XII intact bilaterally, no focal motor deficits, no sensory deficits noted and deep tendon reflexes 2+ bilaterally Neuro Narrative: Chronic right-sided hemiplegia Psych mental status grossly normal and affect normal Assessment & Plan Assessment/Plan (1) Generalized tonic-clonic seizure: PLAN: 1. Breakthrough seizure-Seizure precautions. Keppra level pending. Patient admitted at [facility] 12/16/2021 through 12/21/2021 where he was admitted to neuro critical care unit and intubated for status epilepticus. Continuous EEG showed epileptiform discharges prominently from the left hemisphere which corresponds with prior left MCA stroke. Discussed with [facility] neurology, recommends increasing Keppra to 1500 mg twice daily. Recommend outpatient psychiatric evaluation due to impulsiveness from TBI. Patient's mother reports patient will take handfuls of potassium/magnesium without her knowledge to control muscle spasms. Plan for rehab unit 01/23/2022. 2. Lactic acidosis-secondary #1. No evidence of infection. 3. Recent GI bleed secondary to gastric ulcer/iron deficiency anemia-Per outside records, patient discharged on PPI and Carafate. Not listed on home medications. Continue Protonix 40 mg daily. Trend CBC. 4. History of traumatic brain injury/CVA with chronic right hemiplegia and poststroke seizures- PT/OT. On Keppra at baseline. 5. Myopathy of unclear etiology-possible polymyalgia rheumatica? Prednisone recently tapered at [facility]. Remains on prednisone 10 mg daily. 6. Recent C. difficile colitis-completed treatment. 7. Vaping-reportedly hides this from his mother who found vaping supplies next to him prior to admission. Obtain urine tox screen. Advised against vaping. DVT prophylaxis-Lovenox subcu This patient was seen by Norma Marshall NP-C under the supervision of Dr. Botello. Time spent examining patient, reviewing data and subsequent management of care: 14 Minutes Documented by User: Dr. Kinza Botello MD 01/22/22 18:01 Objective Data Lab / Micro Data Result Diagrams: 01/22/22 04:39 01/22/22 04:39 Charges/Coding Addendum Addendum: This patient was seen in conjunction with Mike Bentley NP. I have independently interviewed and examined the patient and reviewed pertinent historical, laboratory, and other data. I have reviewed her note and concur with her documentation Patient was seen and examined. He is much more awake and alert. No acute events. SOC consulted. Urine tox negative for benzo. Physical Exam: Gen: Comfortable, not pale, not jaundiced CVS:HS I +II, regular, no murmurs RESP: Diminished at lung bases GI: BS present and normal, soft, nontender, no palpable organs EXT:No edema ASSESSMENT: 1. Breakthrough seizure in a patient with generalized tonic-clonic seizure 2. Lactic acidosis 3. Recent GI bleed secondary to gastric ulcer/iron deficiency anemia 4. Traumatic brain injury 5. CVA with chronic right hemiplegia 6. Myopathy of unclear etiology 7. Recent CT Plan: Continue on increased dose of Keppra DC fitch catheter Possible DC in am Time spent coordinating patient's care, discussing with subspecialty and nursin minutes Visit Charges Inpatient E&M: 42821 Subs Hosp L2
--- NOTE | 2022-01-22 14:19 | CASEMGMT ---
CARLENE notified patient and his mom that patient has been accepted and approved for [facility] 4th floor inpatient rehab unit. They were both agreeable. Plan: d/c to [facility] 4th floor rehab unit Jayda PUENTES
[2022-01-22 14:47] LABS: Amphetamine Urine VISTA NEGATIVE (<1000 ng/mL); Barbiturate Urine VISTA NEGATIVE (< 200 ng/mL); Benzodiazepine Urine VISTA POSITIVE (< 200 ng/mL); Cocaine Urine VISTA NEGATIVE (< 300 ng/mL); Ecstacy Urine VISTA NEGATIVE (< 500 ng/mL); Methadone Urine VISTA NEGATIVE (< 300 ng/mL); PCP Urine VISTA NEGATIVE (< 25 ng/mL); THC Urine VISTA NEGATIVE (< 50 ng/mL); Vista UDS pH Range 5
[2022-01-22] MEDS: Pantoprazole Sodium 40 MG Tablet PO (21:18)
[2022-01-22] MEDS: levETIRAcetam 750 MG Tablet 1500 MG PO (21:18)
[2022-01-22] MEDS: Sucralfate 1 GM Tablet PO (21:19)
[2022-01-23 03:00] VITALS: PULSE 60
[2022-01-23 03:25] VITALS: BP 103/69; PULSE 62; RESP 18; TEMP 36.8; O2SAT 95
[2022-01-23] MEDS: 0.9% Saline Lock 10 ML Syringe IV ×2 (05:55→09:15)
[2022-01-23] MEDS: Sucralfate 1 GM Tablet PO ×2 (05:56→11:42)
[2022-01-23] MEDS: Gabapentin 300 MG Capsule PO ×2 (05:56→13:25)
[2022-01-23 07:00] VITALS: PULSE 65
[2022-01-23 09:06] VITALS: BP 93/57; PULSE 71; RESP 18; TEMP 36.6; O2SAT 93
[2022-01-23] MEDS: levETIRAcetam 750 MG Tablet 1500 MG PO (09:13)
[2022-01-23] MEDS: Baclofen 10 MG Tablet PO ×2 (09:14→13:25)
[2022-01-23] MEDS: predniSONE 10 MG Tablet PO (09:14)
[2022-01-23] MEDS: Pantoprazole Sodium 40 MG Tablet PO (09:14)
[2022-01-23 09:19] VITALS: O2SAT 94
--- NOTE | 2022-01-23 10:25 | PCM.DC ---
Discharge Instructions Diet Discharge Diet: No restrictions Activity Discharge Activity: Return to Normal Activity Dressing / Incision Call your doctor if your incision/area has: Continuous Slow Oozing, Sudden Increased Bleeding, Increased Pain/ Swelling, Foul Smelling Discharge and Swelling at the incision site Call your doctor if you observe: Shortness of breath, Dizziness, Chest pain and - (Recurrent seizure) Follow Up Care Test Results: Test results from this visit will be discussed in further detail at your follow-up appointment, if applicable. Discharge Plan Admission Admit Date/Time: 01/21/22 15:48 Primary Reason for Your Visit: Breakthrough seizure Attending Provider: Kinza Botello Primary Care Provider: Cheng Downey Discharge Orders/Prescriptions Prescriptions: New sucralfate 1 gram Tablet 1 g PO 1HR_ACHS Qty: 0 RF: 0 pantoprazole 40 mg Tablet,Delayed Release (Dr/Ec) 40 mg PO BID Qty: 0 RF: 0 levetiracetam 750 mg Tablet 1,500 mg PO BID Qty: 0 RF: 0 Continued gabapentin 300 MG capsule 300 mg PO TID RF: 0 baclofen 10 MG tablet 10 mg PO 4X/DAY RF: 0 Botox 0 mg IM .[id number] RF: 0 magnesium oxide 400 mg magnesium Tablet 400 mg PO DAILY RF: 0 melatonin 1 tab PO/SL QHS RF: 0 prednisone 10 mg tablet 10 mg PO DAILY RF: 0 Discontinued levetiracetam 1,000 mg Tablet 1,000 mg PO BID RF: 0 Referrals / Follow Up: Neurology, Primary [Other] - Within 1 Month Cheng Downey MD [Primary Care Provider] - In 1 Week Disposition Disposition (needs filled in before D/C Order can be placed): Inpatient Rehab Unit/Facility
--- NOTE | 2022-01-23 10:36 | DS.PCM_ITS ---
Documented by User: Norma Marshall UNIFORM ROOM ATTENDANT, UNIFORM ROOM ATTENDANT-C 01/23/22 10:43 Providers Date of Admission: 01/21/22 Date of Discharge: 01/23/22 Primary Care Physician: Dr. Cheng Downey MD Reason For Visit: SEIZURE Diagnosis Discharge Diagnosis (1) Generalized tonic-clonic seizure: Status: Acute Code(s): G40.409 - Other generalized epilepsy and epileptic syndromes, not intractable, without status epilepticus Medications at Discharge Home Medications gabapentin 300 mg PO TID 09/08/14 baclofen 10 mg PO 4X/DAY 04/11/16 Botox 0 mg IM .[id number] 06/06/17 magnesium oxide 400 mg PO DAILY 01/21/22 melatonin 1 tab PO/SL QHS 01/21/22 prednisone 10 mg PO DAILY 01/21/22 levetiracetam 1,500 mg PO BID 01/23/22 pantoprazole 40 mg PO BID 01/23/22 sucralfate 1 g PO 1HR_ACHS 01/23/22 Hospital Course Operations None Procedures Electroencephalogram Summary of Care Provided Hospital Course: Patient is a 56-year-old male admitted 01/21/2022 due to breakthrough seizure. 1. Breakthrough seizure-Seizure precautions. Keppra level pending. Patient admitted at [facility] 12/16/2021 through 12/21/2021 where he was admitted to neuro critical care unit and intubated for status epilepticus. Continuous EEG showed epileptiform discharges prominently from the left hemisphere which corresponds with prior left MCA stroke. Discussed with [facility] neurology, recommends increasing Keppra to 1500 mg twice daily. Recommend outpatient psychiatric evaluation due to impulsiveness from TBI. Patient's mother reports patient will take handfuls of potassium/magnesium without her knowledge to control muscle spasms. DC to rehab unit 01/23/2022. 2. Lactic acidosis-secondary #1. No evidence of infection. 3. Recent GI bleed secondary to gastric ulcer/iron deficiency anemia-Per outside records, patient discharged on PPI and Carafate. Not listed on home m edications. Continue Protonix and Carafate as previously ordered. If hemoglobin remains stable, can likely continue Protonix 40 mg daily and discontinue Carafate. 4. 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 5. Myopathy of unclear etiology-possible polymyalgia rheumatica? Prednisone recently tapered at [facility]. Remains on prednisone 10 mg daily. 6. Recent C. difficile colitis-completed treatment. 7. Vaping-reportedly hides this from his mother who found vaping supplies next to him prior to admission. Urine tox screen unremarkable with the exception of benzodiazepines however patient had received Ativan. Advised against vaping. Physical Exam Const alert, oriented x3 and no apparent distress Orientation / Consciousness: awake, oriented to person, oriented to place and oriented to time HEENT normocephalic and moist oral mucous membranes Eyes PERRL, EOMs intact bilaterally and conjunctivae normal Neck no lymphadenopathy Resp normal respiratory effort and clear to auscultation bilaterally Cardio regular rate, regular rhythm and no murmurs Peripheral Pulses: pulses 2+ throughout GI normal to inspection, nondistended, normoactive bowel sounds, non-tender and non-distended Extremity normal to inspection Skin no rashes or lesions noted Lesions: no lesions Rashes: no rashes Trauma: no lacerations or abrasions Neuro CN's II-XII intact bilaterally, no focal motor deficits, no sensory deficits n oted and deep tendon reflexes 2+ bilaterally Neuro Narrative: Chronic right-sided hemiplegia with right upper extremity contracture and mild aphasia Psych mental status grossly normal and affect normal Patient seen and examined prior to discharge. Physical assessment as noted above. Patient is stable for discharge with follow up recommendations as noted above. This patient was seen by STEPHAN Peralta under the supervision of Dr. Botello. Time spent examining patient, reviewing data and subsequent management of care: 16 Minutes Weight / BMI Weight Weight: 156 lb 4.924 oz Body Mass Index (BMI) 20.6 ABG / Lab / Microbiology Data Result Diagrams: 01/22/22 04:39 01/22/22 04:39 Laboratory: Laboratory Results - last 24 hr 01/22/22 14:28: Urine Opiates Screen NEGATIVE, Urine Methadone Screen NEGATIVE, Ur Barbiturates Screen NEGATIVE, Ur Phencyclidine Scrn NEGATIVE, Ur Amphetamines Screen NEGATIVE, MDMA (Ecstasy) Screen NEGATIVE, U Benzodiazepines Scrn POSITIVE H, Urine Cocaine Screen NEGATIVE, U Cannabinoids Screen NEGATIVE, Ur Drug Screen Comment Microbiology: Microbiology 01/21/22 14:27 Nasal Secretion SARS-CoV-2 Antigen (Rapid) - Final D/C Instructions Discharge Diet: No restrictions Call your doctor if your incision/area has: Continuous Slow Oozing, Sudden Increased Bleeding, Increased Pain/ Swelling, Foul Smelling Discharge and Swelling at the incision site Call your doctor if you observe: Shortness of breath, Dizziness, Chest pain and - (Recurrent seizure) Meaningful Use Info Meaningful Use Diagnoses (Choose all that apply): None applicable Discharge Plan Admission Admit Date/Time: 01/21/22 15:48 Primary Reason for Your Visit: Breakthrough seizure Attending Provider: Kinza Botello Primary Care Provider: Cheng Downey Discharge Orders/Prescriptions Prescriptions: Continued gabapentin 300 MG capsule 300 mg PO TID RF: 0 baclofen 10 MG tablet 10 mg PO 4X/DAY RF: 0 Botox 0 mg IM .[id number] RF: 0 magnesium oxide 400 mg magnesium Tablet 400 mg PO DAILY RF: 0 melatonin 1 tab PO/SL QHS RF: 0 prednisone 10 mg tablet 10 mg PO DAILY RF: 0 Discontinued levetiracetam 1,000 mg Tablet 1,000 mg PO BID RF: 0 No Action sucralfate 1 gram tablet 1 g PO 1HR_ACHS RF: 0 pantoprazole 40 mg tablet,delayed release (DR/EC) 40 mg PO BID RF: 0 levetiracetam 750 mg tablet 1,500 mg PO BID RF: 0 Referrals / Follow Up: Neurology, Primary [Other] - Within 1 Month Cheng Downey MD [Primary Care Provider] - In 1 Week Disposition Disposition (needs filled in before D/C Order can be placed): Inpatient Rehab Unit/Facility Documented by User: Dr. Kinza Botello MD 01/23/22 15:33 Providers Date of Admission: 01/21/22 Reason For Visit: SEIZURE Medications at Discharge Home Medications gabapentin 300 mg PO TID 09/08/14 baclofen 10 mg PO 4X/DAY 04/11/16 Botox 0 mg IM .[id number] 06/06/17 magnesium oxide 400 mg PO DAILY 01/21/22 melatonin 1 tab PO/SL QHS 01/21/22 prednisone 10 mg PO DAILY 01/21/22 levetiracetam 1,500 mg PO BID 01/23/22 pantoprazole 40 mg PO BID 01/23/22 sucralfate 1 g PO 1HR_ACHS 01/23/22 ABG / Lab / Microbiology Data Result Diagrams: 01/22/22 04:39 01/22/22 04:39 Discharge Plan Admission Admit Date/Time: 01/21/22 15:48 Primary Reason for Your Visit: Breakthrough seizure Attending Provider: Kinza Botello Primary Care Provider: Cheng Downey Discharge Orders/Prescriptions Prescriptions: Continued gabapentin 300 MG capsule 300 mg PO TID RF: 0 baclofen 10 MG tablet 10 mg PO 4X/DAY RF: 0 Botox 0 mg IM .[id number] RF: 0 magnesium oxide 400 mg magnesium Tablet 400 mg PO DAILY RF: 0 melatonin 1 tab PO/SL QHS RF: 0 prednisone 10 mg tablet 10 mg PO DAILY RF: 0 Discontinued levetiracetam 1,000 mg Tablet 1,000 mg PO BID RF: 0 No Action sucralfate 1 gram tablet 1 g PO 1HR_ACHS RF: 0 pantoprazole 40 mg tablet,delayed release (DR/EC) 40 mg PO BID RF: 0 levetiracetam 750 mg tablet 1,500 mg PO BID RF: 0 Referrals / Follow Up: Neurology, Primary [Other] - Within 1 Month Cheng Downey MD [Primary Care Provider] - In 1 Week Disposition Disposition (needs filled in before D/C Order can be placed): Inpatient Rehab Unit/Facility Charges/Coding Addendum Addendum: This patient was seen in conjunction with Mike Bentley NP. I have independently interviewed and examined the patient and reviewed pertinent historical, laboratory, and other data. I have reviewed her note and concur with her documentation 56y/o male with PMHx of traumatic brain injury, history of CVA with chronic right hemiplegia, post CVA seizure disorder, who comes in with a breakthrough seizure and altered mental status. Patient was found unresponsive by his mother and foaming at the mouth. Patient was said to have missed 1 dose of Keppra. He was brought to the emergency room. Started on IV Keppra. Patient was seen by telemetry neurology. Continued on Keppra. Was seen by PT and OT and skilled for discharge to group home facility Physical Exam: Gen: Comfortable, not pale, not jaundiced CVS:HS I +II, regular, no murmurs RESP: Diminished at lung bases GI: BS present and normal, soft, nontender, no palpable organs EXT:No edema SECONDARY HISTORY TEACHER; chronic right hemiplegia especially of the upper extremity, alert, oriented x3. Time spent coordinating patient's care, discussing with subspecialty and nursin minutes Visit Charges Inpatient E&M: 07848 Disch Hosp
--- NOTE | 2022-01-23 11:53 | CASEMGMT ---
Patient is ready for discharge to [facility] 4th floor inpatient rehab unit. Jayda PUENTES
--- NOTE | 2022-01-23 12:31 | NURSING ---
Nurse to Nurse report given to nurse Benjamin on Rehab unit. Will resume care of pt at this time.
--- NOTE | 2022-01-23 15:57 | NURSING ---
Reviewed and agreed on charting with Yasmeen Choe RN
[2022-01-28 20:31] LABS: KEPPRA (LEVETIRACETAM) <1.0 ug/mL (10.0-40.0)
== END 2022-01-23 10:27 ==
LOC: ED 14:59 → PCU 15:57
PROVIDERS: Nurse Practitioner Family; Admitting Provider Family Medicine; Emergency Provider Emergency Medicine; PCP Family Medicine; Visit Provider Internal Medicine
DX: G40.409 Other generalized epilepsy and epileptic syndromes, not intractable, without status epilepticus (principal); I69.351 Hemiplegia and hemiparesis following cerebral infarction affecting right dominant side; D50.0 Iron deficiency anemia secondary to blood loss (chronic); K25.4 Chronic or unspecified gastric ulcer with hemorrhage; Z91.19 Patient's noncompliance with other medical treatment and regimen; I10 Essential (primary) hypertension; Z79.899 Other long term (current) drug therapy; F17.290 Nicotine dependence, other tobacco product, uncomplicated; E87.2 Acidosis; Z87.820 Personal history of traumatic brain injury
CPT/HCPCS: 36415 ×2; 36600; 51702; 70450; 71045; 80048; 80053; 80177; 80307; 82803; 83605; 85025 ×2; 87811; 93005; 95819; 97110; 97163; 97166; 97535; 99285; A4216

== ENCOUNTER 2022-01-23 14:00 | Inpatient (IN) | payer MEDICAID, SELFPAY ==
[2022-01-23 14:03] VITALS: BP 112/70; PULSE 75; RESP 18; TEMP 36.6; O2SAT 94; BMI 20.7
[2022-01-23] MEDS: Baclofen 10 MG Tablet PO ×2 (18:01→22:39)
[2022-01-23] MEDS: Sucralfate 1 GM Tablet PO ×2 (18:01→22:39)
[2022-01-23 19:01] VITALS: O2SAT 95
[2022-01-23 19:37] VITALS: BP 112/70; PULSE 69; RESP 17; TEMP 37.1; O2SAT 94
[2022-01-23] MEDS: Pantoprazole Sodium 40 MG Tablet PO (22:39)
[2022-01-23] MEDS: Gabapentin 300 MG Capsule PO (22:39)
[2022-01-23] MEDS: MELATONIN 3 MG TABLET PO (22:39)
[2022-01-23] MEDS: levETIRAcetam 750 MG Tablet 1500 MG PO (22:39)
[2022-01-24] MEDS: Gabapentin 300 MG Capsule PO ×3 (06:05→21:41)
[2022-01-24 06:34] VITALS: O2SAT 96
[2022-01-24] MEDS: predniSONE 10 MG Tablet PO (07:59)
[2022-01-24] MEDS: Sucralfate 1 GM Tablet PO ×4 (07:59→21:41)
[2022-01-24 08:40] VITALS: BP 106/64; PULSE 68; RESP 16; TEMP 36.9; O2SAT 94
[2022-01-24] MEDS: Baclofen 10 MG Tablet PO ×4 (09:52→21:41)
[2022-01-24] MEDS: Pantoprazole Sodium 40 MG Tablet PO ×2 (09:52→21:41)
[2022-01-24] MEDS: Magnesium Chloride 64 MG Delay Rel.Tablet 128 MG PO (09:52)
[2022-01-24] MEDS: levETIRAcetam 750 MG Tablet 1500 MG PO ×2 (09:52→21:40)
--- NOTE | 2022-01-24 19:20 | REHABEVAL_ITS ---
Admission Information Primary Diagnosis:: Physical debility due to prior CVA with persistent deficits and recent decline in function due to breakthrough seizures. Status Changes from Prescreening?: No changes Identified Actual Problem List:: Skin Intergrity, Pain, ALteration in Cmfrt, Mobility Impai red, Self Care Deficit, Know.Dfct of Medicaitons (non-compliance with medications and with using a AD with ambulation.) and Alteration-Leisure Activ. Potential Problem List:: DVT, Bleeding, Infection, UTI, Aspiration, Falls, Skin Integrity and Depression Risk of Complications DVT: PAULA Hose and Sequential Compression Device Bleeding: Monitor Lab Values, Nursing to Teach Precautions for anti-coagulation therapy., Wound, if applicable, to be assessed every shift. and Stroke patients assessed for lethargy or change in status. Infection: Clinical Staff to Monitor for S/S of infection: and S/S of infection include fever, redness, warmth, etc. Urinary Tract Infection: Monitor for frequency, burning, discomfort, or incontinence. and Nursing will obtain urine sample for urinalysis and C&S when ordered. Aspiration: Clinical staff will monitor for coughing, drooling, congestion., Speech will evaluate swallowing and dsyphasia. and Nursing will monitor patient swallowing during meals. Falls: Patient will be evaluated for Fall Precautions and Patient will be placed on Fall Precautions as indicated per protocol. Skin Breakdown: Nursing will assess skin daily using assessment tool. and Nursing will place on Skin Breakdown Precautions as indicated. Pain: Clinical staff will assess patient's pain level per protocol., Medications will be given, if needed, and the pain level reassessed. and Other methods: Massage, distraction, decrease stimulus, etc. used PRN. Plan of Care Patient requires physician specializing in physical medicine and rehab oversight to provide close medical supervision of rehab issues including: Pain Management, Sleep Problems, Bowel and Bladder, Medical and co-morbidity Management, DVT prophylaxis, Rehabilitation Leadership and Coordination of treatment team Patient needs Physical Therapy: For a minimum of 1 hour and At least 5 out of 7 days Patient needs Physical Therapy to improve:: Mobility, Strengthening, Transfers, Stretching, ROM, Endurance, Stairs, Gait and Balance Patient needs Occupational Therapy: For a minimum of 1 hour and At least 5 out of 7 days Patient needs Occupational Therapy to improve ADL's incl.: Eating, Grooming, Bathing, Dressing, Toileting, Toilet transfers, Community Reintegration, Higher functioning activities, Household tasks, Adaptive Equipment, Splinting and Other activities as determined Patient requires speech therapy: For a minimum of 1 hour and At least 5 out of 7 days Patient requires speech therapy for: Swallowing, Cognition, Language Skills and Compensatory Strategies Patient requires 24/7 Rehabilitation Nursing for: Pain Issues, Identifying and preventing risk factors, Monitoring and reporting current medical conditions, Assisting with ambulation, transfer, and all ADL's, Teaching patients about disease process and medications, Family teaching, Providing safe environment, Bowel and Bladder Issues, Skin integrity and Medication Management Patient needs Director Of Ancillary Services/ Case Management for: Discharge Planning, Arranging Home Equipment or Services and Family Interventions Patient needs Dietary and Nutrition Services for: Adequate Nutrition, Nutritional Supplements and Nutritional Education Goals Patient will remain: free from falls and or injury at time of discharge. Patient will perform bed mobility at: MOD I level of assist. Patient will complete transfers from bed to chair at: MOD I level of assist. Patient will ambulate: - (75 feet with a wheeled walker and supervision x1) Patient will propel wheelchair: - Patient will complete upper body dressing at: Standby Assist. Patient will complete lower body dressing at: MOD I level of assist. Patient will complete toileting at: - (He will demonstrate transfer on/off an elevated toilet seat and completion of toileting tasks at minimal assistance) Patient will perform bathing at: - (SBA/Min Assist ) Patient will complete grooming at: Standby Assist. Patient will complete home management skills at: MOD I level of assist. Patient will achieve: - (1 curb step) Patient will have pain level of: of 3 or less Patient's skin will: remain intact Patient will receive: adequate nutrition. Discharge Planning Pt Prognosis for Sig. Practical Improv. w/in Reasonable Time: Good Estimated Length of stay (days): 28 Anticipated D/C Destination: Home w/ family or friends Was Preadmission Assessment Accurate?: Yes
--- NOTE | 2022-01-24 19:20 | HP.PCM_ITS ---
HPI - General General Date of Admission: 01/23/22 HPI Narrative HIRAL JOSE is a 56 YO M with the PMH listed below who presented to the ED at [facility] on 01/21/22 after having a breakthrough seizure at home with persistent altered mental status. He lives with his mother and she found him lying on the floor in the BR with vaping equipment lying next to him. He was keeping the vapping a secret from her. He was unresponsive and foaming at the mouth. His mother told the ED doc that he may have missed a dose of Keppra the preceding evening but, he has otherwise been compliant with meds recently. He monitors his own meds and his mother reported that he often takes massive amounts of OTC supplements such as Melatonin, Magnesium and Potassium. A NC CTB showed stable focal areas of encephalomalacia in the L frontal, parietal and occipital lobes with ipsilateral dilatation of the left lateral ventricle from a previous stroke. His mother told the hospitalist that he had recently been admitted to [facility] for a GIB (due to a gastric ulcer) in November. He also had silas esophagitis (likely from high dose steroids)that he had been taking for suspected PMR. He had blood transfusions and he was discharged on Sucralfate and a PPI BID. Since being on the Prednisone he has experienced progressive muscle weakness and he has had insomnia.......he did not go to sleep until 6 AM the night prior to the most recent seizure and sleep deprivation likely contributed to the seizure. Significant lab included a stable HGB at 10.7, a low serum bicarbonate of 20 (likely related to the seizure and lact acidosis) and an elevated BUN at 20 with a creatinine of 1.12. A Keppra level was ordered but, unfortunately the level is still pending at this time. He was admitted to the hospitalist service and a consult with tele-neurology was ordered. His NIHSS at the time of the exam was 11. Neurology felt that Vaping, sleep deprivation and taking large quantities of OTC supplements likely contributed to the seizure. He had severe hypomagnesemia at recent admission to [place]. He recommended increasing Keppra to 1500 mg twice daily, checking a urine tox screen and counseling the patient regarding regular sleeping hours, eating regular healthy meals, tobacco cessation and avoidance of drugs and alcohol. The tox screen was positive for benzodiazepines but he had been given Ativan for the seizure prior to coming to the emergency department. He also recommended Hiral cease taking excessive amounts of supplements. He was seen by PT in the hospital and given a MRS of 4. His mother stated he had been declining over the past month and was weaker, since the seizure/GIB at [facility] the end of November. Since the pt had been Mod I and ambulating with no AD prior to the seizure in November and was driving acute rehab was recommended. He was transferred to the in acute rehab unit at [facility] on 01/23/22 for 3 hours of therapy daily to restore function and independence at or near his prior level of function. He will not be allowed to drive and will need to follow up with neurology. Since the stroke/TBI he has been impulsive with poor safety awareness. 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 He is non-compliant, impulsive with poor safety awareness has a TBI and also a hx of stroke and now he has a seizure disorder. While he was at [facility] the Predisone he had been taking for myopathy were tapered down to 10 mg daily. He was also treated recently for C. Diff. His mother told me that both she and Hiral had COVID in August 2021. In September Hiral was c/o pain everywhere in his body. He was placed on Prednisone 30 mg and every time they tried to decrease the dose the pain returned. Finally the prednisone was increased to 60 mg. Prednisone was RX'd by his PCP. He has not seen a analytical lead or his neurologist (Dr. Willoughby at [facility]). Hiral denies jaw claudication and also denies vision changes. Dr. Willoughby has been giving him Botox injections for the spasticity in the R arm and his mother tells me that 2 weeks after the injection he gets flu like sx for about 4 days. He also takes Baclofen and he tells me that this helps. He has chronic pain in the R arm and he can not categorize this as sharp, dull, lighting like, tingling. He denies having numbness. He also tells me that he has pain in his face and the LUE. He denies pain in the calves, abd, back, thighs. He is not depressed but has been anxious. Hiral follows with Dr. Fu and gets iron infusions because he does not absorb iron from the GI tract. He was scheduled for and infusion this past week and missed the appt due to the seizure and admission to the hospital. [facility] Medical History (Updated 01/25/22 @ 20:[address] Sharonda Mariscal DO) Back problem Bone fracture COVID-19 GI bleed Head trauma HTN (hypertension) Iron deficiency Kidney stones Myopathy Seizure disorder as sequela of cerebrovascular accident 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 (CVA) Stroke TBI (traumatic brain injury) Home Medications gabapentin 300 mg PO TID 09/08/14 [History Last Taken 01/20/22] baclofen 10 mg PO 4X/DAY 04/11/16 [History Last Taken 01/20/22] Botox 0 mg IM .[id number] 06/06/17 [History Last Taken 10/23/21] magnesium oxide 400 mg PO DAILY 01/21/22 [History Last Taken 01/20/22] melatonin 1 tab PO/SL QHS 01/21/22 [History Last Taken Unknown] prednisone 10 mg PO DAILY 01/21/22 [History Last Taken 01/20/22] levetiracetam 1,500 mg PO BID 01/23/22 [History Last Taken Unknown] pantoprazole 40 mg PO BID 01/23/22 [History Last Taken Unknown] sucralfate 1 g PO 1HR_ACHS 01/23/22 [History Last Taken Unknown] Allergy/AdvReac Type Severity Reaction Status Date / Time tramadol Allergy SEIZURE Verified 12/16/21 07:15 Family History Father CVA (cerebral vascular accident) Hypertension Melanoma Mother Osteoporosis Surgical History (Updated 01/25/22 @ 19:[address] Sharonda Mariscal DO) History of kidney removal S/P appendectomy S/P colectomy S/P foot surgery, left S/P hernia repair Status post ear surgery Social History household members: other details: Per paramedics lives with his mother Smoking Status: Current every day smoker tobacco type: e-cigarettes second hand exposure: No alcohol intake: former substance use type: does not use caffeine: Yes what type of physical activity do you participate in: none seatbelt use: always ROS ROS Narrative Hiral was able to provide some of his history but, his mother was present in the room and filled in a lot of the gaps. Constitutional Constitutional: Reports difficulty sleeping, fatigue, malaise and weakness; Denies anorexia, change in weight, chills, fever(s) or night sweats Eyes Eyes: Denies blurry vision, change in vision, double vision, exophthalmos, eye pain or loss of vision ENT HEENT: Reports facial pain and other Details: he has a hearing implant (cochlear) done by Dr. Puente on the L. He has face pain......CT head showed chronic sinusitis ; Denies abnormal hearing, dysphagia, headache(s), hearing loss, nasal congestion or sore throat Cardiovascular Cardiovascular: Denies chest pain, dyspnea on exertion, edema, lightheadedness, orthopnea, palpitations, paroxysmal nocturnal dyspnea or syncope Respiratory/Chest Respiratory/Chest: Denies cough, dyspnea, shortness of breath at rest, shortness of breath with exertion or wheezing Gastrointestinal Gastrointestinal: Reports other Details: recent GIB due to gastric ulcer due to high dose Prednisone ; Denies abdominal pain, constipation, diarrhea, dyspepsia, hematemesis, hematochezia, nausea or vomiting Genitourinary Genitourinary: Denies dysuria, hematuria, nocturia, urinary frequency, urinary hesitancy, urinary incontinence or urinary urgency Musculoskeletal Musculoskeletal: Reports abnormal gait, extremity pain, muscle spasms and muscle weakness; Denies back pain, joint pain, joint swelling or neck pain Neurologic Neurologic: Reports focal weakness, memory loss, seizures and weakness; Denies confusion, disequilibrium, dizziness, headache(s), paresthesias, tremor(s) or vertigo Psychiatric Psychiatric: Reports anxiety, memory loss and other Details: He has impulsivity and poor safety awareness ; Denies depression, hallucinations, homicidal ideation, panic attacks, suicidal ideation or visual hallucinations Endocrine Endocrinology: Denies change in body appearance, polydipsia or polyuria Hematologic/Lymphatic Hematologic/Lymphatic: Denies easy bleeding, easy bruising or lymphadenopathy Allergic/Immunologic Allergic/Immunologic: Denies rhinitis, eczemia or asthma Vital Signs Vital Signs Vital Signs: 01/23/22 19:37 01/23/22 22:00 01/24/22 06:34 Temperature 98.7 F Temperature Source Temporal Pulse Rate 69 Respiratory Rate 17 Respiratory Effort Normal Non-Labored Respiratory Depth Normal Respiratory Pattern Normal Blood Pressure 112/70 Blood Pressure Mean 84 Blood Pressure Source Monitor Blood Pressure Position Semi-Fowlers Blood Pressure Location Left Arm Pulse Ox 94 96 Oxygen Delivery Method Room Air Room Air Room Air 01/24/22 08:40 Temperature 98.4 F Temperature Source Temporal Pulse Rate 68 Respiratory Rate 16 Respiratory Effort Respiratory Depth Respiratory Pattern Blood Pressure 106/64 Blood Pressure Mean 78 Blood Pressure Source Monitor Blood Pressure Position Supine Blood Pressure Location Left Arm Pulse Ox 94 Oxygen Delivery Method Room Air Weight Weight: 156 lb 4.924 oz Body Mass Index (BMI) 20.7 Physical Exam Const alert and no apparent distress General Appearance: cooperative, comfortable, well kempt and well developed HEENT normocephalic HEENT Narrative: he has a hearing implant behind the left ear pinna Head and Scalp: normal to inspection Face and Sinus: facial tenderness Eyes PERRL, EOMs intact bilaterally, conjunctivae normal and no scleral icterus General Eye: normal appearance of both eyes Neck Neck Narrative: He has decreased cervical rotation to the left and SB to the left. No spasm in the trapezius muscles. General: trachea midline; Negative for lymphadenopathy or torticollis Thyroid: thyroid normal Carotids: normal carotid upstroke; Negative for bruit Lymph Lymphatic: no lymphadenopathy noted Chest inspection of chest normal Resp normal respiratory effort, normal air movement and clear to auscultation bilaterally Effort and Inspection: able to speak in complete sentences Cardio regular rate, regular rhythm, S1 normal heart sound, S2 normal heart sound, no murmurs, no rub and no gallops Cardio Narrative: no ectopy Peripheral Pulses: pulses 2+ throughout GI normal to inspection, nondistended, normoactive bowel sounds, soft to palpation, non-tender, no masses and no bruits GI Narrative: No guarding with palpation. No hepatosplenomegaly. Extremity no calf tenderness and no pedal edema Extremity Narrative: the R little finger is contracted and so is the RUE Skin no rashes or lesions noted and no wounds Neuro CN's II-XII intact bilaterally Neuro Narrative: He has no movement in the R arm or the R leg. No sensory deficits. No ataxia with the LUE or the LLE. Could not test on the R due to no movement. No visual field cuts. No neglect Psych affect normal, denies hallucinations, denies homicidal ideation and denies suicidal ideation Psych Narrative: some trouble with word finding. Impulsive with poor safety awareness. Appearance: appropriate and well kempt Attitude: calm Activity / Motor Behavior: appropriate eye contact; Negative for psychomotor agitation, fidgetting, hyperactive or restless Mood & Affect: euthymic mood Attention / Concentration: attention grossly intact Assessment & Plan Assessment/Plan (1) Seizure disorder as sequela of cerebrovascular accident: (2) Myopathy: (3) Insomnia: (4) Steroid dependence: (5) Stroke: (6) Right hemiplegia: (7) TBI (traumatic brain injury): (8) Iron deficiency: (9) History of kidney removal: (10) HTN (hypertension): (11) GI bleed: (12) Nicotine dependence due to vaping tobacco product: (13) Anemia: (14) 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 (CVA): PLAN: PLAN PT for gait stability OT for ADL's ST for evaluation Analgesics as needed Bowel protocol Fall precautions Assess for Anxiety/Depression He is currently on sucralfate and Protonix 40 mg twice daily for recent gastric ulcer with GI bleed DVT prophylaxis with PAULA taiwo and SCD's in light of recent gastric ulcer and GIB requiring transfusion Follow up with neurology following DC from IP Rehab AM lab including cortisol (baseline), CPK, aldolase, ESR, CRP......I do not know what was being treated with the Predisone.....PMR, polymyositis, autoimmune myositis? He is now on a steroid taper. Is the myopathy due to prolonged high dose steroid? or was it part of the original diagnosis for which the steroids were started. Will request records from Dr. Downey. Will also get records from Dr. Willoughby(his neurologist), Dr. Valentin and records from the admissions to [facility] and [facility]. I suspect he should be seeing a analytical lead and will consider referral to the [facility] at [place]. Add Elavil at HS for insomnia and possible central pain S. Add topical neuropathy cream TID to the RUE. Monitor for urine retention. No driving until he is at least 6 months seizure free. With his impulsivity and poor safety awareness I do not recommend driving even after he is 6 months seizure free. Smoking cessation was discussed with Hiral and his mother Michael and they were advised that cigarette smoking/vaping/E cigarettes is the leading preventable cause of mortality in the [place]. The 3 major causes of smoking-related mortality are atherosclerotic cardiovascular diseases, lung cancer and COPD. Up to 1/2 of all smokers can expect to of a smoking related illness. Smoking also increases the risk for Infections, Diabetes, Osteoporosis, Reproductive disorders, PUD, peridontal disease and postoperative complications. Nicotine is a potent psychoactive drug that causes physical dependence and tolerance. Nicotine withdrawal sx inluding increased appetite or weight gain, depressed mood, insomnia, irritability, frustration, anxiety, difficulty concentrating and restlessness were discussed. Hiral was advised that the withdrawal symptoms generally peak in the first 3 days and subside over the next 3-4 weeks but cravings may continue for months to years. Both Behavioral and pharmacologic therapies were discussed with the patient and he was given an opportunity to ask questions. All questions were answered and he was made aware of the smoking cessation program at [facility] I also discussed with Hiral and his mother Michael having Michael dispense his medications to him and Hiral was agreeable to this. I also discussed that you can not suddenly stop prednisone after being on it for a long period due to possible adrenal crisis and . We also mentioned you can also not suddenly stop Baclofen.....it must be tapered. I spent 75 minutes with Hiral and his mother, over 1/2 the time was spent obtaining history and providing education. Unit Exclusion This patient is an acute care inpatient being housed in the excluded unit because of capacity issues related to the disaster or emergency.: Yes Charges/Coding Visit Charges Inpatient E&M: 88306 Init Hosp L3
[2022-01-24 19:26] VITALS: BP 103/78; PULSE 82; RESP 15; TEMP 37; O2SAT 97
[2022-01-24] MEDS: MELATONIN 3 MG TABLET PO ×2 (21:41)
--- NOTE | 2022-01-25 04:04 | NURSING ---
REVIEWED AND AGREE WITH FOOD TRUCK CATERER'S FUNCTIONAL ASSESSMENT AND HANDOFF CHARTING.
[2022-01-25] MEDS: Gabapentin 300 MG Capsule PO ×3 (04:43→21:00)
[2022-01-25] MEDS: Sucralfate 1 GM Tablet PO ×4 (05:22→21:00)
[2022-01-25] MEDS: Acetaminophen 325 MG Tablet 650 MG PO (05:22)
[2022-01-25 06:45] VITALS: O2SAT 94
[2022-01-25 08:30] VITALS: BP 121/76; PULSE 72; RESP 16; TEMP 36.8; O2SAT 98
[2022-01-25] MEDS: predniSONE 10 MG Tablet PO (09:03)
[2022-01-25] MEDS: Baclofen 10 MG Tablet PO ×4 (09:03→21:00)
[2022-01-25] MEDS: Magnesium Chloride 64 MG Delay Rel.Tablet 128 MG PO (09:03)
[2022-01-25] MEDS: levETIRAcetam 750 MG Tablet 1500 MG PO ×2 (09:03→21:00)
[2022-01-25] MEDS: Pantoprazole Sodium 40 MG Tablet PO ×2 (09:04→21:00)
[2022-01-25] MEDS: Senna/Docusate Sodium 1 Tablet 2 TABLET PO (09:04)
--- NOTE | 2022-01-25 09:15 | CASEMGMT ---
Social Work Met with patient to complete initial assessment. Introduced self and role. Pt wishes to have mother as primary contact. Chart reflects. Pt confirms full code, code status. Explained [employer] insurance with [employer] 01/28 and continued stay is not guaranteed with each review. The goal is for pt to return home at [facility]. Team will be held 01/28 with his mother present to further discuss mother's physical condition and assistance she could provide for pt at home to ensure a safe DC plan. SW to continue to follow. SHANTA LunaW
[2022-01-25 19:26] VITALS: BP 113/69; PULSE 71; RESP 14; TEMP 37.2; O2SAT 95
[2022-01-25] MEDS: Amitriptyline 25 MG Tablet PO (21:00)
[2022-01-25] MEDS: Neuropathy Pain Cream Compound 60 CLICK TUBE TOPICAL (21:00)
--- NOTE | 2022-01-26 02:05 | NURSING ---
Reviewed and agree with CNMT documentation and assessment charting.
[2022-01-26] MEDS: Neuropathy Pain Cream Compound 60 CLICK TUBE TOPICAL ×3 (06:17→20:24)
[2022-01-26] MEDS: Gabapentin 300 MG Capsule PO ×2 (06:17→13:08)
[2022-01-26 07:03] VITALS: BP 116/73; PULSE 74; RESP 18; TEMP 36.6; O2SAT 96
[2022-01-26 07:24] LABS: Erythrocyte Sedimentation Rate 19 mm/hr (0-20)
[2022-01-26 07:43] LABS: CPK Total, Creatine Kinase 111 U/L (39-308); CRP < 2.90 mg/L (0.0-3.0)
[2022-01-26] MEDS: Baclofen 10 MG Tablet PO ×4 (08:57→20:24)
[2022-01-26] MEDS: predniSONE 10 MG Tablet PO (08:57)
[2022-01-26] MEDS: Magnesium Chloride 64 MG Delay Rel.Tablet 128 MG PO (08:58)
[2022-01-26] MEDS: levETIRAcetam 750 MG Tablet 1500 MG PO ×2 (08:58→20:24)
[2022-01-26] MEDS: Senna/Docusate Sodium 1 Tablet 2 TABLET PO (08:59)
[2022-01-26] MEDS: Pantoprazole Sodium 40 MG Tablet PO ×2 (08:59→20:23)
[2022-01-26 09:35] VITALS: O2SAT 96
[2022-01-26] MEDS: Sucralfate 1 GM Tablet PO ×3 (11:33→20:24)
[2022-01-26 13:11] LABS: Ferritin 20 ng/mL (26-388); Iron 26 ug/dL (65-175); Iron Binding Capacity,Total 388 ug/dL (250-450); PERCENT IRON SATURATION 6.7 % (15.0-55.0)
[2022-01-26 20:10] VITALS: BP 108/61; PULSE 80; RESP 18; TEMP 36.7; O2SAT 94
[2022-01-26] MEDS: Gabapentin 300 MG Capsule 600 MG PO (20:24)
[2022-01-26] MEDS: Amitriptyline 25 MG Tablet PO (20:25)
--- NOTE | 2022-01-27 01:50 | NURSING ---
Reviewed and agree with FOREIGN EXCHANGE DEALER assessment.
[2022-01-27] MEDS: Sucralfate 1 GM Tablet PO ×4 (06:57→21:42)
[2022-01-27] MEDS: Gabapentin 300 MG Capsule PO ×2 (06:57→14:17)
[2022-01-27] MEDS: Neuropathy Pain Cream Compound 60 CLICK TUBE TOPICAL ×3 (06:57→21:43)
[2022-01-27 07:32] VITALS: BP 111/71; PULSE 70; RESP 16; TEMP 36.6; O2SAT 96
[2022-01-27] MEDS: Magnesium Chloride 64 MG Delay Rel.Tablet 128 MG PO (08:59)
[2022-01-27] MEDS: Senna/Docusate Sodium 1 Tablet 2 TABLET PO ×2 (08:59→21:43)
[2022-01-27] MEDS: Pantoprazole Sodium 40 MG Tablet PO ×2 (08:59→21:43)
[2022-01-27] MEDS: Baclofen 10 MG Tablet PO ×4 (08:59→21:43)
[2022-01-27] MEDS: levETIRAcetam 750 MG Tablet 1500 MG PO ×2 (08:59→21:43)
[2022-01-27] MEDS: predniSONE 10 MG Tablet PO (08:59)
[2022-01-27 19:00] VITALS: BP 107/72; PULSE 67; RESP 16; TEMP 36.9; O2SAT 94
[2022-01-27] MEDS: Gabapentin 300 MG Capsule 600 MG PO (21:42)
[2022-01-27] MEDS: Amitriptyline 25 MG Tablet PO (21:43)
[2022-01-28] MEDS: Gabapentin 300 MG Capsule PO ×2 (06:08→13:27)
[2022-01-28] MEDS: Sucralfate 1 GM Tablet PO ×4 (06:08→19:48)
[2022-01-28] MEDS: Neuropathy Pain Cream Compound 60 CLICK TUBE TOPICAL ×3 (06:51→19:50)
[2022-01-28] MEDS: predniSONE 10 MG Tablet PO (07:39)
[2022-01-28 07:43] VITALS: BP 103/75; PULSE 16; RESP 66; TEMP 36.5; O2SAT 94
[2022-01-28] MEDS: Psyllium 1 PACKET PO (09:21)
[2022-01-28] MEDS: Baclofen 10 MG Tablet PO ×4 (09:21→19:48)
[2022-01-28] MEDS: levETIRAcetam 750 MG Tablet 1500 MG PO ×2 (09:21→19:48)
[2022-01-28] MEDS: Pantoprazole Sodium 40 MG Tablet PO ×2 (09:22→19:48)
[2022-01-28] MEDS: Senna/Docusate Sodium 1 Tablet 2 TABLET PO ×2 (09:22→19:47)
[2022-01-28] MEDS: Magnesium Chloride 64 MG Delay Rel.Tablet 128 MG PO (09:22)
--- NOTE | 2022-01-28 13:10 | CASEMGMT ---
Social Work IDT met with patient and mother for Team meeting. Discussed patient's progress in PT/OT/ST and nursing. Pt making progress. Explained [employer] insurance with [employer] 01/28 and continued stay is not guaranteed. The goal is for pt to return home with mother. Mother to assume med management tasks. Provided Dr. Mariscal drive revocation form, per her request to complete for pt. Pt expressed understanding. Mother thinks [facility] prior. SW to order C PT/OT/ST/SN at time of DC. No DME needs indicated. SW to continue to follow. Aidee Pablo, NUCLEAR TECHNICIAN RASPBERRY CHECKER
--- NOTE | 2022-01-28 14:11 | PN_ITS ---
Subjective Subjective Swapnil was seen on team rounds today. His mother Michael was present in the room. Afebrile VSS Maintaining appropriate oxygen saturation on RA Oral intake is adequate Discussed with nursing - no problems that need addressed Reviewed the PT/OT/ST notes Medication list reviewed. Michael brought in the stimulator he uses on the RUE for pain control. He tells us that that motion part of the machine in the forearm works but the E STIM in the upper arm has not been working for the past few months and his pain has gotten worse. Increasing the Gabapentin dose at HS has not helped with sleep or with pain. AM cortisol is low using the new reference range. Denies CP, SOB, palpitations. No N/V/Abd pain. He is not lightheaded and he is progressing with therapy. He is very cooperative with therapy. He tells me that he is not sleeping at night but, the night crew has not said that he has been awake all night. He was sleeping when the OT came in today to help him shower this morning. He tells us that the neuropathy cream is helping somewhat with the pain in the R arm. Difficult to evaluate because he sometimes says yes when he means no and vice versa (due to aphasia). Objective Data Objective Data Vital Signs: Vital Signs Temp Pulse Resp BP Pulse Ox 97.7 F L 16 L 66 H 103/75 94 01/28/22 07:43 01/28/22 07:43 01/28/22 07:43 01/28/22 07:43 01/28/22 07:43 Oxygen Delivery Method Room Air Weight: 157 lb 10.088 oz Body Mass Index (BMI) 20.7 Intake & Output: Intake and Output for Last 24 Hours 01/26/22 01/27/22 01/28/22 23:59 23:59 23:59 Intake Total 120 / 120 240 / 240 Output Total 500 / 500 Balance 120 / 120 -260 / -260 Lab / Micro Data Labs: Laboratory Results - last 24 hr 01/26/22 07:05: Cortisol 4.70 Physical Exam Const alert Constitutional Narrative: does not appear to be in any significant distress. He used the forearm appliance today with the OT and it worked. General Appearance: cooperative Resp normal respiratory effort, normal air movement and clear to auscultation bilaterally Effort and Inspection: able to speak in complete sentences Cardio regular rate, regular rhythm and no gallops GI normal to inspection, nondistended, normoactive bowel sounds, soft to palpation and non-tender Extremity no calf tenderness and no pedal edema Extremity Narrative: The RUE is not in spasm at the present time. He does not have movement in the RUE. No redness, no increased warmth of the R arm. No swelling. Skin General Skin Exam: no breakdown Rashes: no rashes Assessment & Plan Assessment/Plan (1) 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 (CVA): (2) Steroid dependence: (3) Insomnia: (4) GI bleed: (5) Myopathy: (6) Seizure disorder as sequela of cerebrovascular accident: (7) Stroke: (8) Right hemiplegia: (9) TBI (traumatic brain injury): (10) Poor impulse control: (11) Expressive aphasia: (12) Iron deficiency: PLAN: 1. Give 3 doses of Iron Sucrose 200 mg IV 2. Increase the Gabapentin to 400 mg BID and continue the 600 mg at HS - 3. Increase the Elavil to 50 mg at HS 4. I do not think the nerve stimulator is working to control pain......he used to feel a shock and for the past few months this has not happened. The family was told that the pads had to be moistened and that worked for a short time and then stopped working. Jama sets this up and I am not sure he is doing it properly. I think he needs more supervision than he gets at home with his mother. She is going to dispense the medications from now on and we are competing paperwork to have his drivers licence due to poor impulse control, poor safety awareness and breakthrough seizures. I suspect someone from the company where he purchased the machine will have to check out the machine and ma ke sure Jama is using it properly 5. Consult Dr. Slaughter to see if Jama would benefit from a block? 6. Continue therapy 7. I am going to recommend he follow up with Dr. Sahu to taper and discontinue the Prednisone properly. 8. Check an ACTH level. Strength is improving and he is now able to ambulate 25 feet without an AD at SBA/CGA. He is also able to shower, toilet and dress at SBA. May benefit from palliative care ....will discuss this with his mom and with palliative to see if he has a qualifying diagnosis. Charges/Coding Visit Charges Inpatient E&M: 30215 Subs Hosp L2
[2022-01-28 15:16] LABS: Aldolase 5.9 U/L (3.3-10.3)
[2022-01-28 19:43] VITALS: BP 107/64; PULSE 66; RESP 18; TEMP 36.6; O2SAT 94
[2022-01-28] MEDS: Amitriptyline 25 MG Tablet PO (19:48)
[2022-01-28] MEDS: Gabapentin 300 MG Capsule 600 MG PO (19:49)
[2022-01-29] MEDS: Gabapentin 300 MG Capsule PO ×2 (04:45→13:43)
[2022-01-29] MEDS: Sucralfate 1 GM Tablet PO ×4 (04:46→20:01)
[2022-01-29] MEDS: Neuropathy Pain Cream Compound 60 CLICK TUBE TOPICAL ×3 (05:43→20:03)
[2022-01-29 07:22] VITALS: BP 102/72; PULSE 74; RESP 16; TEMP 36.8; O2SAT 100
[2022-01-29] MEDS: Psyllium 1 PACKET PO (08:05)
[2022-01-29] MEDS: Baclofen 10 MG Tablet PO ×4 (08:05→20:03)
[2022-01-29] MEDS: Magnesium Chloride 64 MG Delay Rel.Tablet 128 MG PO (08:05)
[2022-01-29] MEDS: levETIRAcetam 750 MG Tablet 1500 MG PO ×2 (08:05→20:02)
[2022-01-29] MEDS: predniSONE 10 MG Tablet PO (08:05)
[2022-01-29] MEDS: Pantoprazole Sodium 40 MG Tablet PO ×2 (08:06→20:04)
[2022-01-29] MEDS: Acetaminophen 325 MG Tablet 650 MG PO ×2 (08:08→19:59)
[2022-01-29] MEDS: Sodium Ferric Gluconat 250 MG in 0.9% Normal Saline 250 ML 135 MG IV (14:21)
[2022-01-29 18:50] VITALS: BP 102/62; PULSE 69; RESP 16; TEMP 37.1; O2SAT 99
[2022-01-29 19:44] VITALS: PULSE 80; RESP 16; O2SAT 96
[2022-01-29] MEDS: Gabapentin 300 MG Capsule 600 MG PO (20:00)
[2022-01-29] MEDS: Amitriptyline 25 MG Tablet 50 MG PO (20:02)
[2022-01-29] MEDS: Senna/Docusate Sodium 1 Tablet 2 TABLET PO (20:04)
[2022-01-29] MEDS: 0.9% Saline Lock 10 ML Syringe IV (20:20)
[2022-01-30] MEDS: Sucralfate 1 GM Tablet PO ×4 (05:11→20:43)
[2022-01-30] MEDS: Neuropathy Pain Cream Compound 60 CLICK TUBE TOPICAL ×3 (05:11→20:44)
[2022-01-30] MEDS: Gabapentin 400 MG Capsule PO ×2 (05:12→13:16)
[2022-01-30 07:55] VITALS: BP 113/57; PULSE 61; RESP 16; TEMP 37.1; O2SAT 96
[2022-01-30] MEDS: Magnesium Chloride 64 MG Delay Rel.Tablet 128 MG PO (08:53)
[2022-01-30] MEDS: levETIRAcetam 750 MG Tablet 1500 MG PO ×2 (08:53→20:44)
[2022-01-30] MEDS: predniSONE 10 MG Tablet PO (08:53)
[2022-01-30] MEDS: Psyllium 1 PACKET PO (08:53)
[2022-01-30] MEDS: Baclofen 10 MG Tablet PO ×4 (08:53→20:44)
[2022-01-30] MEDS: Pantoprazole Sodium 40 MG Tablet PO ×2 (08:54→20:44)
[2022-01-30] MEDS: Acetaminophen 325 MG Tablet 650 MG PO (09:03)
[2022-01-30] MEDS: Senna/Docusate Sodium 1 Tablet 2 TABLET PO ×2 (09:03→20:45)
--- NOTE | 2022-01-30 12:50 | PCM.PN.BLA ---
Progress Note Afebrile VSS Maintaining appropriate oxygen saturation on RA Oral intake is good Discussed with nursing - no problems that need addressed Reviewed the PT/OT/ST notes Medication list reviewed. ACTH is pending. Jama wants to go home. He tells me he is bored. He thinks he is getting stronger and he is doing well in therapy. That being said he nearly fell on the way to the BR today and the nurse had to grab him prior to falling. He has had no seizures. He was seen by Dr. Slaughter today and Jama told him he does not want anything stronger than Tylenol for pain. I really am unable to tell how much pain he is in ......he does not appear to be in any distress. His yes and no answers are not consistent. OT is going to try the [employer] stimulator on the RUE today since the battery was charged yesterday. He normally uses this 3 times a week. The other day he told us he no longer felt the buzzing in his upper arm but, today he told me he did? I discussed having him follow up with Dr. Sahu as an OP to appropriately taper him off steroids and he is agreeable to this. I talked with OT after they let Jama apply the stimulator and they are not sure he is able to apply and activate properly. the unit only stayed on for about 4 minutes before the battery and we read in the manual supplied by his mom that the batter needs to be replaced every 2 years and it has to be ordered from [employer] because it is a special battery and OTC batteries will possibly damage the unit. Who knows how long it has been non-functional.......when it was active the stimulation was working appropriately. OT told me he is more unsteady today and I suspect this has something to do with the increase in the Gabapentin. Nothing we do seems to make any difference in the pain.....will go back to 600 mg at HS and 300 mg BID and also decrease the Elavil to 25 mg. Jama told me today that he did not sleep well last night but, in reading the nursing notes he was asleep every time they did rounds and he did not wake up when they were in the room this AM. He does not appear to be fatigued. Impressions 1. Steroid myopathy 2. seizure disorder 3. 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 4. Cognitive dysfunction, impulsivity, poor safety awareness, seizure disorder - I do not think he should be driving ever again. He wants to go home and he looked as though he was going to cry and had to look away. I think he may be able to go home Friday and will ask his mother to come in tomorrow to learn how to best assist Jama. She has not really had to do much except provide meals but, I think he needs assistance with medications, using the [employer] stimulator on the R arm and a few other things. He can manage his ADL's but likely needs distant supervision with showering. He has been up in his room today and has not been calling for the nurse.......he is a fall risk. He may benefit going forward from [place].....would give his mother a break and give him something to do......he tells me that only thing he likes to do is drive and this is going to be taken away because it is not safe. Visit Charges Inpatient E&M: 67240 Subs Hosp L1
[2022-01-30 14:15] LABS: Adrenocorticotropic Hormone < 1.5 pg/mL (7.2-63.3)
[2022-01-30 19:20] VITALS: BP 115/68; PULSE 67; RESP 16; TEMP 36.4; O2SAT 95
[2022-01-30 19:54] VITALS: PULSE 72; RESP 16; O2SAT 97
[2022-01-30] MEDS: Gabapentin 300 MG Capsule 600 MG PO (20:43)
[2022-01-30] MEDS: Amitriptyline 25 MG Tablet 50 MG PO (20:43)
[2022-01-31] MEDS: Neuropathy Pain Cream Compound 60 CLICK TUBE TOPICAL ×3 (05:33→20:03)
[2022-01-31] MEDS: Gabapentin 400 MG Capsule PO (05:33)
[2022-01-31] MEDS: Sucralfate 1 GM Tablet PO ×4 (05:33→20:04)
[2022-01-31 07:51] VITALS: BP 106/66; PULSE 63; RESP 16; TEMP 36; O2SAT 98
[2022-01-31] MEDS: Psyllium 1 PACKET PO (08:28)
[2022-01-31] MEDS: predniSONE 10 MG Tablet PO (08:39)
[2022-01-31] MEDS: Baclofen 10 MG Tablet PO ×4 (08:39→20:03)
[2022-01-31] MEDS: Magnesium Chloride 64 MG Delay Rel.Tablet 128 MG PO (08:39)
[2022-01-31] MEDS: levETIRAcetam 750 MG Tablet 1500 MG PO ×2 (08:40→20:03)
[2022-01-31] MEDS: Pantoprazole Sodium 40 MG Tablet PO ×2 (08:40→20:03)
[2022-01-31] MEDS: Senna/Docusate Sodium 1 Tablet 2 TABLET PO ×2 (08:40→20:03)
[2022-01-31] MEDS: Gabapentin 300 MG Capsule PO (14:58)
--- NOTE | 2022-01-31 15:04 | CASEMGMT ---
Addendum entered by Aidee Pablo 01/31/22 18:03: [facility] is unable to accept. Referred to [facility]. Original Note: Social Work IDT discussed pt's progress. Family is attending therapy training today. IDT/pt requesting to DC 02/01. Spoke with pt and family to confirm DC plans. Cautioned since insurance has not given an outcome from 01/28, the past days may not be covered, however, Dr agreed to complete peer to peer to get those day approved, potentially. Mother expressed understanding. Confirmed pt would still like to use [facility] from previous use. Referral made to [facility] PT/OT/ST/SN. No DME needs. family to transport. Received updated from Dr. Mariscal requesting to provide [facility] to pt to continue to stay active, socialize, and get out of the house since he can no longer drive. Provided resource to pt. Plan: DC home with mother 02/01, [facility] PT/OT/ST/SN SHANTA Luna
--- NOTE | 2022-01-31 15:14 | PCM.PN.BLA ---
Progress Note AF VSS Maintaining appropriate oxygen saturation on room air Jama's mother and his sister Tonya came in for family training today. They are impressed with how he is ambulating now. Tonya was better able to give me a better hx. Jama had COVID in August. Following the acute illness he was very weak and then he went to see Dr. Downey c/o total body pain and he was placed on steroids......she does not know the diagnosis for what the steroid was prescribed for. He has apparently been on steroids since then and they were recently tapered down to 10 mg daily by [facility] where he was an inpt for seizure breakthrough. Jama complains of pain in the RUE only at this time. Apparently the stimulator for the RUE has not been working for several months and no one let Tonya know. She does not know if the battery in the certified medical technician assistant has ever been replaced and she will contact the company. Jama is able to get off the floor in the event that he has a fall. I talked to them about Jama not being able to drive again for the rest of his life. The impulsivity and poor safety awareness coupled with the decreased cognitive function is too risky. We also discussed going to see Dr. Sahu for secondary adrenal insufficiency and to appropriately taper the steroids to ensure that the adrenal/pituitary glands respond appropriately when the steroids are tapered down further. He had been furniture and wall walking at presentation to rehab and now is is walking without and AD and is not needing to use furniture or the wall usually. He occasionally loses his balance. We discussed possibly [facility] to see if Jama would like it there. I think both he and his mother would benefit from this. Jama needs social connections and also needs to fill like he is productive. His mother has been depressed, due to the loss of her 4 years ago, the pandemic and then getting COVID in August. She has not been monitoring Jama's medications or how he is doing with the RUE stimulator. She did not know how to assist him and she is maybe overprotective and does not want Jama leaving the house. Jama seemed excited about checking out [facility]. Tonya will take him there and the is going to get her the information. We plan on discharging tomorrow. He will follow up with neurology, Dr. Downey and also Dr. Sahu. The is arranging for [facility] for therapy and a nurse. Someone needs to monitor Jama's medications and he can not have access to OTC meds to take handfuls at a time. Alert appropriate, talkative and outgoing. Lungs - CTA HRRR abd - soft, NT, ND no peripheral edema. Impressions 1. myopathy - due to deconditioning, steroids, COVID? unknown. continue the steroid wean as an OP with Dr. Sahu 2. R hemiparesis - he has learned to manage very well with this and is ambulating without an AD most of the time now which is his baseline. 3. 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 4. Iron deficiency - 600 mg of IV iron Sucrose was given in rehab prior to discharge Visit Charges Inpatient E&M: 38198 Subs Hosp L2
--- NOTE | 2022-01-31 15:51 | DCINST_ITS ---
Discharge Instructions Diet Discharge Diet: No restrictions Activity Discharge Activity: May Not Drive and May Shower Lifting Restrictions: none Dressing / Incision Call your doctor if you observe: Fever of 101 or Higher, Inability to urinate, Inability to have a bowel movement, Shortness of breath, Dizziness, Fainting spells, Swelling in the ankles, Uncontrolled pain and - (seizures) Follow Up Care Please Follow Up With: Cheng Downey MD When: within the next 2 weeks Test Results: Test results from this visit will be discussed in further detail at your follow-up appointment, if applicable. Pending Tests Upon Discharge: none Discharge Plan Admission Admit Date/Time: 01/23/22 14:00 Primary Reason for Your Visit: physical debility/generalized weakness Attending Provider: Sharonda Mariscal Primary Care Provider: Cheng Downey Consulting Providers: Nicci Slaughter Instructions Patient Instructions: Depression Affects Your Mind ..., Know the Symptoms of Depression, Understanding Psychotherapy Additional Instructions / Restrictions: 1. I am referring you to Dr. Ortiz Sahu who is an charge out clerk. Right now your adrenal gland and the pituitary are not working properly because they are being suppressed by the Prednisone. If you suddenly stopped the Prednisone before the adrenal gland and the pituitary are working again you could . Steroids have to be tapered off and only stopped when the adrenal gland and the pituitary gland are functioning again. For now you will continue taking 10 mg daily......it was decreased while you were at [facility]. 2. You will be getting therapy at home and will also have a nurse to monitor your medications along with your mother. 3. I suspect that the battery in the gas substation operator for your R arm stimulator needs replaced and this is why it has not been working. You will have to contact [employer] and arrange for a new battery. The manual for the unit states it usually needs replaced every 2 years. 4. The [facility] is a place for adults for a day or 2 a week. You will have your meals there and you will meet many other people to talk and interact with. They have games and movies and many different activities to participate in. You would be an great inspiration/help to many of the people there because you have such a great attitude and you are outgoing and friendly. You set a great example. You may also want to consider going the gym at [facility]. They have classes there for exercise and they have a lot of gym equipment to briseida p you strong........use it or lose it Jama......in order to keep yourself strong and functional you need to exercise regularly. The people and staff there are very nice and helpful......you may benefit from progressing from therapy at home to therapy at [facility]. Your mom may even want to check out some of the classes. 5. Do NOT vape. The breakthrough seizure you had recently was likely due to the combined effects of overdosing on over the counter meds like Melatonin, sleep deprivation and Vaping/nicotine. Take only the medications that your mother gives you. We added a medication called Elavil (also known as amitriptyline) to take at bedtime to help you sleep and also to help with pain in your right arm. The nurses attest that you have been sleeping every time they make rounds at night. 6. It has been a pleasure helping you to regain your strength Jama. If you or your family have questions after you leave you can always call me. Office: [phone] Be happy Jama, you deserve it! We sure enjoyed meeting you and your family. PS: I have given you a prescription for the stool softener we have been giving you in rehab. Some of your medications cause constipation. If you would prefer taking Metamucil then Take 1 tablespoon with 8 ox of water 1-2 times a day. Discharge Orders/Prescriptions Prescriptions: New acetaminophen [Tylenol] 325 mg Tablet 650 mg PO Q4H PRN PRN (Reason: Pain Score 1-10) Qty: 0 RF: 0 amitriptyline 25 mg Tablet 25 mg PO QHS Qty: 30 RF: 0 sennosides-docusate sodium [Stool Softener-Stimulant Laxat] 8.6-50 mg Tablet 2 tab PO DAILY Qty: 60 RF: 0 Continued Botox 0 mg IM .[id number] RF: 0 prednisone 10 mg tablet 10 mg PO DAILY Qty: 30 RF: 0 sucralfate 1 gram tablet 1 g PO 1HR_ACHS Qty: 120 RF: 0 baclofen 10 MG tablet 10 mg PO 4X/DAY Qty: 120 RF: 0 pantoprazole 40 mg tablet,delayed release (DR/EC) 40 mg PO BID Qty: 60 RF: 0 gabapentin 300 MG capsule 300 mg PO TID Qty: 90 RF: 0 levetiracetam 750 mg tablet 1,500 mg PO BID Qty: 120 RF: 0 magnesium oxide 400 mg magnesium Tablet 400 mg PO DAILY Qty: 30 RF: 0 Discontinued melatonin 1 tab PO/SL QHS RF: 0 Referrals / Follow Up: Jose Roberto Chapa [Other] - 02/08/22 2:05 pm Cheng Downey MD [Primary Care Provider] - Ortiz Sahu MD [STAFF PHYSICIAN] - (Office will call to make appointment ) Disposition Disposition (needs filled in before D/C Order can be placed): Home Health Service
--- NOTE | 2022-01-31 16:52 | PCM.DC.SUM ---
Providers Date of Admission: 01/23/22 Date of Discharge: 02/01/22 Primary Care Physician: Dr. Cheng Downey MD Consultations 01/29/22 16:23 Consult: Pain Management Routine Consulting Provider: Nicci Slaughter Reason for Consult: pain in the RUE CRPS vs central neuropathic pain from previous CVA. EMERGENT Consult: No MD Notified: Yes Date Notified: 01/29/22 Time Notified: 16:23 Method of Notification: spoke with his patient care secretary Reason For Visit: SEIZURES Diagnosis Discharge Diagnosis (1) Physical debility: Status: Acute Code(s): R53.81 - Other malaise (2) Myopathy: Status: Acute Code(s): G72.9 - Myopathy, unspecified (3) Steroid dependence: Status: Acute Code(s): F19.20 - Other psychoactive substance dependence, uncomplicated (4) Secondary adrenal insufficiency: Status: Acute Code(s): E27.49 - Other adrenocortical insufficiency (5) TBI (traumatic brain injury): Code(s): S06.9X9A - Unspecified intracranial injury with loss of consciousness of unspecified duration, initial encounter Qualifiers: Encounter type: subsequent encounter Loss of consciousness presence/duration: with LOC of unspecified duration Qualified Code(s): S06.9X9D - Unspecified intracranial injury with loss of consciousness of unspecified duration, subsequent encounter (6) Stroke: Code(s): I63.9 - Cerebral infarction, unspecified Qualifiers: CVA mechanism: unspecified Qualified Code(s): I63.9 - Cerebral infarction, unspecified (7) 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 (CVA): Status: Acute Code(s): I69.398 - Other sequelae of cerebral infarction; R25.2 - Cramp and spasm (8) Seizure disorder as sequela of cerebrovascular accident: Code(s): I69.398 - Other sequelae of cerebral infarction; G40.909 - Epilepsy, unspecified, not intractable, without status epilepticus (9) Right hemiplegia: Code(s): G81.91 - Hemiplegia, unspecified affecting right dominant side (10) Poor impulse control: Status: Chronic Code(s): R45.87 - Impulsiveness (11) Expressive aphasia: Status: Chronic Code(s): R47.01 - Aphasia (12) Insomnia: Status: Resolved Code(s): G47.00 - Insomnia, unspecified Qualifiers: Insomnia type: unspecified Qualified Code(s): G47.00 - Insomnia, unspecified (13) GI bleed: Status: Resolved Code(s): K92.2 - Gastrointestinal hemorrhage, unspecified Qualifiers: GI bleed type/associated pathology: gastric ulcer Qualified Code(s): K25.4 - Chronic or unspecified gastric ulcer with hemorrhage (14) Iron deficiency: Status: Chronic Code(s): E61.1 - Iron deficiency (15) Anemia: Status: Acute Code(s): D64.9 - Anemia, unspecified Qualifiers: Anemia type: iron deficiency Iron deficiency anemia type: other iron deficiency Qualified Code(s): D50.8 - Other iron deficiency anemias (16) History of kidney removal: Code(s): Z90.5 - Acquired absence of kidney (17) HTN (hypertension): Code(s): I10 - Essential (primary) hypertension (18) Nicotine dependence due to vaping tobacco product: Code(s): F17.290 - Nicotine dependence, other tobacco product, uncomplicated Plan: 1. DC home 2. [facility] for therapy 3. Follow up with Dr. Ortiz Sahu for secondary adrenal insufficiency 4. Follow up with Dr. Jose Roberto Chapa for seizure disorder and insomnia 5. Follow up with Dr. Downey within 2 weeks - PCP 6. Paperwork completed to remove his drivers license 7. Recommended he check out the [facility] 8. Family will follow up with [facility] to have the battery replaced in the physician credentialing specialist for RUE stimulator unit Medications at Discharge Home Medications Botox 0 mg IM .[id number] 06/06/17 acetaminophen [Tylenol] 650 mg PO Q4H PRN PRN #0 tab 01/31/22 amitriptyline 25 mg PO QHS #30 tab 01/31/22 baclofen 10 mg PO 4X/DAY #120 tab 01/31/22 gabapentin 300 mg PO TID #90 cap 01/31/22 levetiracetam 1,500 mg PO BID #120 tab 01/31/22 magnesium oxide 400 mg PO DAILY #30 tab 01/31/22 pantoprazole 40 mg PO BID #60 tab 01/31/22 prednisone 10 mg PO DAILY #30 tab 01/31/22 sennosides-docusate sodium [Stool Softener-Stimulant Laxat] 2 tab PO DAILY #60 tab 01/31/22 sucralfate 1 g PO 1HR_ACHS #120 tab 01/31/22 Hospital Course Operations None Procedures None Summary of Care Provided Minutes Spent on Discharge: 40 Hospital Course: HIRAL JOSE is a 56 YO M with the PMH of TBI, CVA, HTN, iron deficiency, recent GI bleed due to gastric ulcer (suspect due to prolonged high dose steroid use), seizure disorder, insomnia, S/P nephrectomy, nephrolithiasis, expressive aphagia, cognitive dysfunction, R hemiparesis, COVID infection in August 2021 and spastic paresis who presented to the ED at [facility] on 01/21/22 after having a breakthrough seizure at home with persistent altered mental status. He lives with his mother and she found him lying on the floor in the BR with vaping equipment lying next to him. He was keeping the vaping a secret from his mother. He was unresponsive and foaming at the mouth. His mother told the ED doc that he may have missed a dose of Keppra the preceding evening but, he has otherwise been compliant with meds recently. He monitors his own meds and his mother reported that he often takes massive amounts of OTC supplements such as Melatonin, Magnesium and Potassium. A NC CTB showed stable focal areas of encephalomalacia in the L frontal, parietal and occipital lobes with ipsilateral dilatation of the left lateral ventricle from a previous stroke. His mother told the hospitalist that he had recently been admitted to [facility] for a GIB (due to a gastric ulcer) in November. He also had silas esophagitis (likely from high dose steroids)that he had been taking for weakness and total body pain post COVID. He had blood transfusions while admitted to [facility] and he was discharged on Sucralfate and a PPI BID. Since being on the Prednisone he has experienced progressive muscle weakness and he has had insomnia. He reportedly did not go to sleep until 6 AM the night prior to the most recent seizure and sleep deprivation likely contributed to the seizure. Significant lab included a stable HGB at 10.7, a low serum bicarbonate of 20 (likely related to the seizure and lactic acidosis) and an elevated BUN at 20 with a creatinine of 1.12. A Keppra level was ordered and was < 1 (therapeutic is 10-40). He was admitted to the hospitalist service and a consult with tele-neurology was ordered. His NIHSS at the time of the exam was 11. Neurology felt that Vaping, sleep deprivation and taking large quantities of OTC supplements likely contributed to the seizure. Non-compliance with Keppra also contributed. The Keppra level did not come back until after the neuro consult and after he was transferred to rehab and it was less than 1. Neurology recommended increasing Keppra to 1500 mg twice daily, checking a urine tox screen and counseling the patient regarding regular sleeping hours, eating regular healthy meals, tobacco cessation and avoidance of drugs and alcohol. The tox screen was positive for benzodiazepines but he had been given Ativan for the seizure prior to coming to the emergency department. He also recommended Hiral cease taking excessive amounts of supplements. He was seen by PT in the hospital and given a MRS of 4. His mother stated he had been declining over the past month and was weaker, since the seizure/GIB at [facility] the end of November. Since the pt had been Mod I and ambulating with no AD prior to the seizure in November acute rehab was recommended. He was transferred to the in acute rehab unit at [facility] on 01/23/22 for 3 hours of therapy daily to restore function and independence at or near his prior level of function. An AM cortisol level was 4.7 which is normal but, the ACTH level was low at < 1.5 indicating pituitary suppression from the chronic steroids over the preceding 3-4 months. He is still on 10 mg of Prednisone daily and this is an adequate dose. Daily dose in a pt with adrenal suppression is 7.5. I referred him to an concrete tile machine operator to taper the steroids off when appropriate. He is iron deficient. Serum iron was low at 26 and the iron saturation was very low at 6.7%. Ferritin was only 20. He received intravenous iron sucrose while in rehab. Aldolase and CPK were within normal limits. Sed rate was normal at 19. Hemoglobin remained stable at 10.7 during his admission. Hiral complained of long standing insomnia. He was started on Elavil 25 mg at HS which was effective in getting him sleeping at night. He had no sx of urine retention and he was alert during normal waking hours. Hiral did well in therapy. He is cooperative and worked hard. He was standby assist/supervision for transfers from various surfaces. He was able to ascend/descend 6 steps with 1 handrail at contact-guard assist. He was able to ambulate 75 feet with no AD at standby assist with occasional use of furniture or the wall rail to steady him and maintain balance. He was able to do 12 sit to stands in 30 seconds. He was able to complete all his daily ADLs at standby assist/supervision. He worked daily with speech therapy during his admission to rehab. The speech therapist recommended continued speech therapy because he continues to have poor attention and decreased metacognitive awareness. He has continued deficits in expressive/receptive language function and cognitive communication skills. 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 He is having seizures, does not take his medications, has severe cognitive dysfunction, increased impulsivity, poor safety awareness and poor memory. He is a danger to himself and others on the road when he is driving. I discussed this Hiral during his stay in rehab. The SW gave him information on the [facility] at [place]. I think he would benefit from increased socialization and getting out of the house. His mother is going to take over managing his medications. I discussed Hiral's situation at home with his sister Tonya. His mother apparently likes to have Hiral at home and tries to control what he does and Tonya does not think this is helpful for Hiral. She assured me she would take Hiral to the [facility] and allow him to make more decisions regarding his contacts, activities, etc. Hiral is very talkative and social. He likes to do things that help other people. His favorite thing to do is drive and since we are taking that away it will be important to find something else that helps him feel useful and productive. He will follow up with Dr. Downey for primary care, Neurology and with Dr. Sahu for endocrinology. He will also continue to follow up with Dr. Chapa for seizures. He will have HHC from [facility] and will have PT/OT/ST/SN. The nurse will focus on medication compliance. Physical Exam Const alert, no apparent distress and well nourished General Appearance: cooperative and well developed HEENT head/scalp atraumatic and moist oral mucous membranes HEENT Narrative: He has a hearing implant behind the left ear pinna. Eyes PERRL and EOMs intact bilaterally Eyes Narrative: No scleral icterus and no conjunctival injection or discharge. Neck supple Resp normal respiratory effort, normal air movement and clear to auscultation bilaterally Cardio regular rate, regular rhythm and peripheral pulses 2+ throughout Cardio Narrative: No ectopy GI normal to inspection, nondistended, normoactive bowel sounds, soft to palpation and non-tender Palpation: Negative for guarding or no hepatosplenomegaly Extremity no clubbing, cyanosis or edema and no calf tenderness Neuro CN's II-XII intact bilaterally Neuro Narrative: He has hemiplegia on the R side. He has no ataxia on the left side. No visual field cuts. He had no seizures while in rehab. No neglect. Psych Psych Narrative: He was making good eye contact and he was very outgoing while in therapy. He seemed to enjoy the interactions with the staff and was talkative and cooperative. Appearance: appropriate Attitude: No agitated Mood & Affect: Negative for flat affect Thought Content: No suicidality and No homicidality Weight / BMI Weight Weight: 157 lb 10.088 oz Body Mass Index (BMI) 20.7 D/C Instructions Discharge Diet: No restrictions Call your doctor if you observe: Fever of 101 or Higher, Inability to urinate, Inability to have a bowel movement, Shortness of breath, Dizziness, Fainting spells, Swelling in the ankles, Uncontrolled pain and - (seizures) Pending Tests Upon Discharge: none Please Follow Up With: Cheng Downey MD When: within the next 2 weeks Meaningful Use Info Meaningful Use Diagnoses (Choose all that apply): None applicable Discharge Plan Admission Admit Date/Time: 01/23/22 14:00 Primary Reason for Your Visit: physical debility/generalized weakness Attending Provider: Sharonda Mariscal Primary Care Provider: Cheng Downey Consulting Providers: Nicci Slaughter Instructions Patient Instructions: Depression Affects Your Mind ..., Know the Symptoms of Depression, Understanding Psychotherapy Additional Instructions / Restrictions: 1. I am referring you to Dr. Ortiz Sahu who is an concrete tile machine operator. Right now your adrenal gland and the pituitary are not working properly because they are being suppressed by the Prednisone. If you suddenly stopped the Prednisone before the adrenal gland and the pituitary are working again you could . Steroids have to be tapered off and only stopped when the adrenal gland and the pituitary gland are functioning again. For now you will continue taking 10 mg daily......it was decreased while you were at [facility]. 2. You will be getting therapy at home and will also have a nurse to monitor your medications along with your mother. 3. I suspect that the battery in the physician credentialing specialist for your R arm stimulator needs replaced and this is why it has not been working. You will have to contact [employer] and arrange for a new battery. The manual for the unit states it usually needs replaced every 2 years. 4. The [facility] is a place for adults for a day or 2 a week. You will have your meals there and you will meet many other people to talk and interact with. They have games and movies and many different activities to participate in. You would be an great inspiration/help to many of the people there because you have such a great attitude and you are outgoing and friendly. You set a great example. You may also want to consider going the gym at [facility]. They have classes there for exercise and they have a lot of gym equipment to keep you strong........use it or lose it Hiral......in order to keep yourself strong and functional you need to exercise regularly. The people and staff there are very nice and helpful......you may benefit from progressing from therapy at home to therapy at [facility]. Your mom may even want to check out some of the classes. 5. Do NOT vape. The breakthrough seizure you had recently was likely due to the combined effects of overdosing on over the counter meds like Melatonin, sleep deprivation and Vaping/nicotine. Take only the medications that your mother gives you. We added a medication called Elavil (also known as amitriptyline) to take at bedtime to help you sleep and also to help with pain in your right arm. The nurses attest that you have been sleeping every time they make rounds at night. 6. It has been a pleasure helping you to regain your strength Hiral. If you or your family have questions after you leave you can always call me. Office: [phone] Be happy Hiral, you deserve it! We sure enjoyed meeting you and your family. PS: I have given you a prescription for the stool softener we have been giving you in rehab. Some of your medications cause constipation. If you would prefer taking Metamucil then Take 1 tablespoon with 8 ox of water 1-2 times a day. Discharge Orders/Prescriptions Prescriptions: New acetaminophen [Tylenol] 325 mg Tablet 650 mg PO Q4H PRN PRN (Reason: Pain Score 1-10) Qty: 0 RF: 0 amitriptyline 25 mg Tablet 25 mg PO QHS Qty: 30 RF: 0 sennosides-docusate sodium [Stool Softener-Stimulant Laxat] 8.6-50 mg Tablet 2 tab PO DAILY Qty: 60 RF: 0 Continued Botox 0 mg IM .[id number] RF: 0 prednisone 10 mg tablet 10 mg PO DAILY Qty: 30 RF: 0 sucralfate 1 gram tablet 1 g PO 1HR_ACHS Qty: 120 RF: 0 baclofen 10 MG tablet 10 mg PO 4X/DAY Qty: 120 RF: 0 pantoprazole 40 mg tablet,delayed release (DR/EC) 40 mg PO BID Qty: 60 RF: 0 gabapentin 300 MG capsule 300 mg PO TID Qty: 90 RF: 0 levetiracetam 750 mg tablet 1,500 mg PO BID Qty: 120 RF: 0 magnesium oxide 400 mg magnesium Tablet 400 mg PO DAILY Qty: 30 RF: 0 Discontinued melatonin 1 tab PO/SL QHS RF: 0 Referrals / Follow Up: Jose Roberto Chapa [Other] - 02/08/22 2:05 pm Cheng Downey MD [Primary Care Provider] - 02/11/22 2:15 pm (Bring Insurance Card) Ortiz Sahu MD [STAFF PHYSICIAN] - (Office will call to make appointment ) Disposition Disposition (needs filled in before D/C Order can be placed): Home Health Service Charges/Coding Visit Charges Inpatient E&M: 96163 Disch Hosp
[2022-01-31 19:26] VITALS: BP 120/79; PULSE 64; RESP 16; TEMP 36.2; O2SAT 99
[2022-01-31] MEDS: Amitriptyline 25 MG Tablet PO (20:04)
[2022-01-31] MEDS: Gabapentin 300 MG Capsule 600 MG PO (20:04)
[2022-02-01] MEDS: Sucralfate 1 GM Tablet PO ×2 (06:04→11:13)
[2022-02-01] MEDS: Neuropathy Pain Cream Compound 60 CLICK TUBE TOPICAL (06:04)
[2022-02-01] MEDS: Gabapentin 300 MG Capsule PO (06:04)
[2022-02-01 07:37] VITALS: BP 106/73; PULSE 75; RESP 12; TEMP 36.4; O2SAT 96
[2022-02-01] MEDS: Pantoprazole Sodium 40 MG Tablet PO (07:53)
[2022-02-01] MEDS: Senna/Docusate Sodium 1 Tablet 2 TABLET PO (07:53)
[2022-02-01] MEDS: Baclofen 10 MG Tablet PO (07:53)
[2022-02-01] MEDS: Magnesium Chloride 64 MG Delay Rel.Tablet 128 MG PO (07:53)
[2022-02-01] MEDS: predniSONE 10 MG Tablet PO (07:53)
[2022-02-01] MEDS: levETIRAcetam 750 MG Tablet 1500 MG PO (07:53)
--- NOTE | 2022-02-01 14:06 | NURSING ---
Discharged home with mother. discharge instructions, mediations and appointments reviewed with pt and mother, denies questions or concerns
[2022-02-01 14:08] VITALS: BP 106/73; PULSE 75; RESP 12; TEMP 36.4; O2SAT 96
== END 2022-02-01 14:10 | disposition home health service (06) | DRG 58 ==
PROVIDERS: Admitting Provider Internal Medicine; PCP Family Medicine; Visit Provider Internal Medicine
DX: I69.398 Other sequelae of cerebral infarction (principal); K25.4 Chronic or unspecified gastric ulcer with hemorrhage; E27.40 Unspecified adrenocortical insufficiency; R47.01 Aphasia; G72.9 Myopathy, unspecified; I69.351 Hemiplegia and hemiparesis following cerebral infarction affecting right dominant side; D50.9 Iron deficiency anemia, unspecified; F17.290 Nicotine dependence, other tobacco product, uncomplicated; G93.89 Other specified disorders of brain; G40.909 Epilepsy, unspecified, not intractable, without status epilepticus; J44.9 Chronic obstructive pulmonary disease, unspecified; I10 Essential (primary) hypertension; Z86.16 Personal history of COVID-19; M62.81 Muscle weakness (generalized); Z79.899 Other long term (current) drug therapy; Z79.52 Long term (current) use of systemic steroids
CPT/HCPCS: 36415; 36600; 51702; 70450; 71045; 80048; 80053; 80177; 80307; 82024; 82085; 82533; 82550; 82728; 82803; 83540; 83550; 83605; 85025; 85652; 86140; 87811; 92507; 92523; 93005; 95819; 96365; 96366; 96375; 96376; 97110; 97112; 97116; 97129; 97130; 97140; 97162; 97163; 97166; 97530; 97535; 97802; 97803; 99218; 99251; 99285; J7050; A4216; G0378; G0463; J2916

== ENCOUNTER 2022-11-18 07:10 | Day surgery (SDC) | payer MEDICAID, SELFPAY ==
[2022-11-18 07:36] VITALS: BP 123/85; PULSE 78; RESP 16; TEMP 37.1; O2SAT 98; BMI 23.8
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
[2022-11-18] MEDS: Lactated Ringers 1,000 ML 15 ML IV (07:46)
[2022-11-18 08:05] VITALS: BP 123/85; BP 90/66; PULSE 70; RESP 16; TEMP 36.3; O2SAT 94
--- NOTE | 2022-11-18 08:09 | OP.EGD_ITS ---
Patient Name: Jama Hanson Procedure Date: 11/18/2022 7:39 AM Date of : 1965 Age: 57 Procedure: Upper GI endoscopy Indications: Peptic ulcer Providers: Kiko Ferreira DO Referring MD: Kiko Ferreira DO Medicines: Monitored Anesthesia Care Patient Profile: This is a 57 year old male. Refer to note in patient chart for documentation of history and physical. Patient has symptoms of chronic epigastric abdominal pain and chronic nausea. Complications: No immediate complications. Procedure: Pre-Anesthesia Assessment: - Prior to the procedure, a History and Physical was performed, and patient medications and allergies were reviewed. The risks and benefits of the procedure and the sedation options and risks were discussed with the patient. All questions were answered and informed consent was obtained. Patient identification and proposed procedure were verified by the physician in the pre-procedure area. Mental Status Examination: alert and oriented. Airway Examination: normal oropharyngeal airway and neck mobility. Respiratory Examination: clear to auscultation. CV Examination: normal. Prophylactic Antibiotics: The patient does not require prophylactic antibiotics. Prior Anticoagulants: The patient has taken no previous anticoagulant or antiplatelet agents. ASA Grade Assessment: II - A patient with mild systemic disease. After reviewing the risks and benefits, the patient was deemed in satisfactory condition to undergo the procedure. The anesthesia plan was to use monitored anesthesia care (MAC). Immediately prior to administration of medications, the patient was re-assessed for adequacy to receive sedatives. The heart rate, respiratory rate, oxygen saturations, blood pressure, adequacy of pulmonary ventilation, and response to care were monitored throughout the procedure. The physical status of the patient was re-assessed after the procedure. After obtaining informed consent, the endoscope was passed under direct vision. Throughout the procedure, the patient's blood pressure, pulse, and oxygen saturations were monitored continuously. The Endoscope was introduced through the mouth, and advanced to the second part of duodenum. The upper GI endoscopy was accomplished without difficulty. The patient tolerated the procedure well. Scope In: 7:56:43 AM Scope Out: 8:00:40 AM Total Procedure Duration Time 0 hours 3 minutes 57 seconds Findings: The examined esophagus was normal. Two non-bleeding cratered gastric ulcers with no stigmata of bleeding were found in the gastric antrum. The largest lesion was 6 mm in largest dimension. Biopsies were taken with a cold forceps for histology. Verification of patient identification for the specimen was done. Estimated blood loss was minimal. The second portion of the duodenum was normal. Impression: - Normal esophagus. - Non-bleeding gastric ulcers with no stigmata of bleeding. Biopsied. - Normal second portion of the duodenum. Recommendation: - Discharge patient to home. - Resume previous diet. - Continue present medications. - Await pathology results. Procedure Code(s): --- Professional --- 48303, Esophagogastroduodenoscopy, flexible, transoral; with biopsy, single or multiple CPT copyright 2017 [employer]. All rights reserved. The codes documented in this report are preliminary and upon welt cutter review may be revised to meet current compliance requirements. Kiko Ferreira DO 11/18/2022 8:08:44 AM This report has been signed electronically. Number of Addenda: 0 Note Initiated On: 11/18/2022 7:39 AM
[2022-11-18 08:10] VITALS: BP 123/85; BP 94/59; PULSE 71; RESP 16; O2SAT 94
--- NOTE | 2022-11-18 08:10 | OP.CCLET_ITS ---
11/18/2022 Cheng Downey [address] [place] [address] Re : Upper GI endoscopy procedure for Jamacong Sommersal Dear Dr. Downey This procedure was performed on Friday, November 18, 2022. My impressions and recommendations are as follows: Impressions : - Normal esophagus. - Non-bleeding gastric ulcers with no stigmata of bleeding. Biopsied. - Normal second portion of the duodenum. Recommendations : - Discharge patient to home. - Resume previous diet. - Continue present medications. - Await pathology results. My findings are described in the full procedure note, which is enclosed. If I can be of further assistance, please feel free to contact me at . Sincerely, Kiko Ferreira, 11/18/2022 8:08:44 AM This report has been signed electronically.
[2022-11-18 08:15] VITALS: BP 123/85; BP 92/51; PULSE 71; RESP 16; O2SAT 93
--- NOTE | 2022-11-18 08:15 | IMM_PTH ---
PATIENT: HIRAL JOSE LOC: EN U#:[id number] AGE/SX: 57/M ROOM: RE11/18/[address]: Dr. Kiko Ferreira DO : 1965 BED: DIS: 11/18/2022 SPEC #: [id number] RECD: 11/18/22 14:24 STATUS: EARNEST REHalle #: [id number] MAHAD: 11/18/22 08:[address]: Kiko Ferreira DEPT: IMMUNOHISTOCHEMISTRY RECD BY: Sona Epstein ENTERED: 11/18/22 14:24 SP TYPE: IMMUNO OTHR DR: Dr. Cheng Downey MD Tissues: Stomach, NOS Procedures: H Pylori (initial) PHYSICIAN & INSTITUTION [place] [address] SPECIMEN INFORMATION: Tissue Source: Gastric antrum ulcer Clinical Info: Peptic ulcer Specimen Number: [id number] CPT code: 19354 METHODOLOGY: Deparaffinized sections of prefer/formalin-fixed tissue or PAP/DQ stained slides are incubated with monoclonal/polyclonal antibodies/oligonucleotide probes. Localization is made via biotin free immunoperoxidase method. Appropriate controls are performed and reacted as expected. Results on target cell population are indicated in the following table: RESULTS: ANTIBODY / CLONE RESULT H Pylori (polyclonal) negative These tests were developed and their performance characteristics determined by [facility]. They may not have been cleared or approved by the U.S. Food and Drug Administration. The FDA has determined that such clearance or approval is not necessary. The above immunohistochemical/dualISH markers are ordered and reviewed by the Pathologist. INTERPRETATION: Gastric antrum ulcer, biopsy: Negative for Helicobacter pylori organisms. AM:alvin 11/19/2022
--- NOTE | 2022-11-18 08:15 | EGD_PTH ---
PATIENT: HIRAL JOSE LOC: EN U#:[id number] AGE/SX: 57/M ROOM: RE11/18/[address]: Dr. Kiko Ferreira DO : 1965 BED: DIS: 11/18/2022 SPEC #: [id number] RECD: 11/18/22 09:58 STATUS: EARNEST JIL #: [id number] MAHAD: 11/18/22 08:[address]: Kiko Ferreira DEPT: SURGICAL PATHOLOGY RECD BY: Gayle Bedolla ENTERED: 11/18/22 11:28 SP TYPE: EGD BIOPSY QUAN DR: Dr. Cheng Downey MD Tissues: Gastric mucous membrane Procedures: Surgery Specimen Level IV HEADER OPERATION: EGD ([facility] [place]), biopsy PRE-OP DIAGNOSIS: Peptic ulcer TISSUE SUBMITTED: Gastric antrum ulcer biopsy MICROSCOPIC DIAGNOSIS Gastric antrum, biopsy: Chronic gastritis. Focal denudation of mucosa. See comment. AM:alvin 11/19/2022 COMMENT The results of immunohistochemistry for Helicobacter pylori will be reported separately ([id number]). MICROSCOPIC DESCRIPTION Slides are reviewed. GROSS DESCRIPTION Received in fixative is one container labeled with the patient's name and designated gastric antrum ulcer biopsy. The specimen consists of multiple irregular fragments of light jung soft tissue that in aggregate measure 1 x 0.3 x 0.1 cm. The specimen is totally submitted in one cassette. / SJ:alvin 11/18/2022 TC:3 CPT: 27322
[2022-11-18 08:20] VITALS: BP 123/85; BP 91/68; PULSE 69; RESP 106; TEMP 37.2; O2SAT 93
[2022-11-18 08:35] VITALS: BP 123/85
== END 2022-11-18 08:59 | disposition home or self-care (01) ==
LOC: EN 07:11 → AC 07:12
PROVIDERS: PCP Family Medicine; Referring Provider Internal Medicine Gastroenterology; Visit Provider Internal Medicine Gastroenterology
PROC: 0DJ08ZZ Inspection of Upper Intestinal Tract, Via Natural or Artificial Opening Endoscopic (ICD-10-PCS; CPT 43235; principal; 2022-11-18 08:10)
DX: K29.50 Unspecified chronic gastritis without bleeding (principal); G40.909 Epilepsy, unspecified, not intractable, without status epilepticus; K25.9 Gastric ulcer, unspecified as acute or chronic, without hemorrhage or perforation; D64.9 Anemia, unspecified; F17.290 Nicotine dependence, other tobacco product, uncomplicated; Z86.16 Personal history of COVID-19; Z86.73 Personal history of transient ischemic attack (TIA), and cerebral infarction without residual deficits
CPT/HCPCS: 43239; 88305; 88342; J7120; J2405